=== PATIENT | male | born 1940 | race Caucasian/White ===

== ENCOUNTER 2019-09-28 17:19 | Inpatient (IN) | payer MEDICARE, MEDICAID ==
[~2019-09-28] VITALS: Ht 172.7 cm; Wt 77.1 kg
[2019-09-28 17:28] VITALS: BP 140/90
--- NOTE | 2019-09-28 17:28 | Emergency Room Report ---
History of Present Illness General Chief Complaint: AMS Source: Patient, Medical Record, EMS Present Illness HPI Patient is a 79-year-old male past medical history of psychiatric disorder, COPD , dementia who was brought in by EMS from his extended care facility for acute psychosis. Per EMS patient started acting agitated and was trying to climb tripp out of the facility. Patient is currently alert and oriented x3. He does not recall any such event. He states he has been watching reruns on TV all day. He denies any headache or head trauma. He denies any chest pain or shortness of breath. He denies any nausea or vomiting. Patient actually declines having any acute complaints. Upon patient arrival I spoke with the patient psychiatrist Dr. lozano who would like basic labs and would like the patient admitted to his primary care physician for further treatment and evaluation. She states that she will adjust his psychiatric medications. Allergies: Coded Allergies: No Known Allergies (Unverified , 09/28/19) Patient History Reviewed Nursing Documentation: PMH: Agreed; PSxH: Agreed Review of Systems All Other Systems: negative except mentioned in HPI Physical Exam Sp02 EP Interpretation: reviewed, normal General Appearance: no apparent distress, alert, GCS 15, non-toxic Head: normocephalic, atraumatic Eyes: bilateral eye normal inspection, bilateral eye PERRL ENT: hearing grossly normal, normal pharynx, no angioedema, normal voice Neck: full range of motion, supple/symm/no masses Respiratory: chest non-tender, lungs clear, normal breath sounds, speaking full sentences Cardiovascular #1: regular rate, rhythm, no edema Gastrointestinal: normal bowel sounds, non tender, soft, non-distended, no guarding, no rebound Rectal: deferred Genitourinary: no CVA tenderness Musculoskeletal: no calf tenderness Neurologic: hospital social worker III-XII nml as tested Psychiatric: no suicidal/homicidal ideation Skin: no rash Lymphatic: no adenopathy Medical Decision Making Diagnostic Impression: Primary Impression: Psychosis Additional Impressions: Dehydration Acute renal failure ER Course Patient became agitated and non-compliant with medical treatment and care. Patient given 2mg IM ativan. He is now resting comfortably in his gurney. Patient's labs demonstrate dehydration with mild TRAY. 1 L of IV fluids has been given. Patient be admitted for further treatment and evaluation UA pending at time of admission. Laboratory Tests Test 09/28/19 18:28 White Blood Count 5.7 K/UL (4.8-10.8) Red Blood Count 4.37 M/UL (4.70-6.10) L Hemoglobin 14.0 G/DL (14.2-18.0) L Hematocrit 41.8 % (42.0-52.0) L Mean Corpuscular Volume 96 FL (80-99) Mean Corpuscular Hemoglobin 31.9 PG (27.0-31.0) H Mean Corpuscular Hemoglobin Concent 33.4 G/DL (32.0-36.0) Red Cell Distribution Width 12.2 % (11.6-14.8) Platelet Count 107 K/UL (150-450) L Mean Platelet Volume 11.2 FL (6.5-10.1) H Neutrophils (%) (Auto) 53.0 % (45.0-75.0) Lymphocytes (%) (Auto) 37.2 % (20.0-45.0) Monocytes (%) (Auto) 7.7 % (1.0-10.0) Eosinophils (%) (Auto) 1.1 % (0.0-3.0) Basophils (%) (Auto) 1.0 % (0.0-2.0) Sodium Level 141 MMOL/L (136-145) Potassium Level 3.9 MMOL/L (3.5-5.1) Chloride Level 103 MMOL/L (98-107) Carbon Dioxide Level 25 MMOL/L (21-32) Anion Gap 13 mmol/L (5-15) Blood Urea Nitrogen 30 mg/dL (7-18) H Creatinine 1.3 MG/DL (0.55-1.30) Estimated Glomerular Filtration Rate 53.4 mL/min (>60) Glucose Level 103 MG/DL (74-106) Calcium Level 8.7 MG/DL (8.5-10.1) Total Bilirubin 0.3 MG/DL (0.2-1.0) Aspartate Amino Transferase (AST) 17 U/L (15-37) Alanine Aminotransferase (ALT) 24 U/L (12-78) Alkaline Phosphatase 70 U/L (46-116) Total Protein 7.0 G/DL (6.4-8.2) Albumin 3.4 G/DL (3.4-5.0) Globulin 3.6 g/dL Albumin/Globulin Ratio 0.9 (1.0-2.7) L Salicylates Level 0.8 ug/mL (2.8-20) L Acetaminophen Level < 2 MCG/ML (10-30) L Serum Alcohol < 3 mg/dL Disposition: PLACE IN OBSERVATION Condition: Critical Physician Consult: Dr. Collado at 1915 will admit to [facility] Additional Instructions: Please note that this report is being documented using TickPick technology. This can lead to erroneous entry secondary to incorrect interpretation by the dictating instrument. Latosha Montanez M.D. Sep 28, 2019 17:28
[2019-09-28] MEDS ORDERED: LORazepam Inj 2mg/ml 1ml ONE (17:43)
[2019-09-28] MEDS ORDERED: LORazepam Inj 2mg/ml 1ml IM ONE (17:45)
[2019-09-28] MEDS ORDERED: CRANBERRY450 M4 PO (17:50)
[2019-09-28] MEDS ORDERED: COLACE100 MG ORAL (17:50)
[2019-09-28] MEDS ORDERED: ACETAMINOPHEN500 M5 ORAL (17:54)
[2019-09-28] MEDS ORDERED: DULCOLAX10 MG RC (17:54)
[2019-09-28] MEDS ORDERED: FLEET ENEMA133 ML RECTAL (17:54)
[2019-09-28] MEDS ORDERED: MULTIVITAMINS1 EA13 ORAL (17:54)
[2019-09-28] MEDS ORDERED: OSCAL D500 MG ORAL (17:54)
[2019-09-28] MEDS ORDERED: MILK OF MA400 MG/51 ORAL (17:54)
[2019-09-28] MEDS ORDERED: DEPAKOTE ER500 MG ORAL (17:54)
[2019-09-28 18:37] LABS: EOSINOPHILS % (AUTO) 1.1 % (0.0-3.0); HEMATOCRIT 41.8 % (42.0-52.0); LYMPHOCYTES % (AUTO) 37.2 % (20.0-45.0); MEAN CORPUSCULAR VOLUME 96 FL (80-99); MONOCYTES % (AUTO) 7.7 % (1.0-10.0); PLATELET COUNT 107 K/UL (150-450); RED BLOOD COUNT 4.37 M/UL (4.70-6.10); RED CELL DISTRIBUTION WIDTH 12.2 % (11.6-14.8); WHITE BLOOD COUNT 5.7 K/UL (4.8-10.8)
[2019-09-28 18:58] LABS: ANION GAP 13 mmol/L (5-15); BLOOD UREA NITROGEN 30 mg/dL (7-18); CALCIUM 8.7 MG/DL (8.5-10.1); CARBON DIOXIDE 25 MMOL/L (21-32); CHLORIDE 103 MMOL/L (98-107); CREATININE 1.3 MG/DL (0.55-1.30); POTASSIUM 3.9 MMOL/L (3.5-5.1); SODIUM 141 MMOL/L (136-145)
[2019-09-28 19:02] LABS: ALANINE AMINOTRANSFERASE 24 U/L (12-78); ALBUMIN 3.4 G/DL (3.4-5.0); ALBUMIN/GLOBULIN RATIO 0.9 (1.0-2.7); ALKALINE PHOSPHATASE 70 U/L (46-116); ASPARTATE AMINO TRANSFERASE 17 U/L (15-37); BILIRUBIN,TOTAL 0.3 MG/DL (0.2-1.0)
[2019-09-28] MEDS ORDERED: LORazepam Inj 2mg/ml 1ml IV ONE (20:30)
[2019-09-28] MEDS ORDERED: Milk of Magnesia 30ml Ud ORAL PRN (22:00)
[2019-09-28] MEDS ORDERED: Acetaminophen 500mg (ES) tab ORAL PRN (22:00)
[2019-09-28] MEDS ORDERED: Fleet's Enema 133ml RECTAL PRN (22:00)
--- NOTE | 2019-09-28 23:39 | Initial Psychiatric Evaluation ---
Psychiatry Consultation Psychiatry Consultation Chief Complaint: Altered Mental Status Allergies: Coded Allergies: No Known Allergies (Unverified , 09/28/19) Medication History Scheduled Acetaminophen (Acetaminophen), 500 MG ORAL Q4H, (Reported) Calcium Carbonate (Oyster Shell Calcium-Vit D Tab), 500 MG ORAL TID, (Reported) Cranberry Fruit Concentrate (Cranberry), 900 MG PO DAILY, (Reported) Divalproex Sodium* (Depakote Er*), 500 MG ORAL EVERY 12 HOURS, (Reported) Docusate Sodium* (Colace*), 100 MG ORAL DAILY, (Reported) Multivitamin with Minerals (Multivitamins with Minerals), 1 TAB ORAL DAILY, ( Reported) Scheduled PRN Bisacodyl (Dulcolax), 10 MG RC NEEDED PRN for Constipation, (Reported) Magnesium Hydroxide* (Milk Of Magnesia*), 30 ML ORAL DAILY PRN for Constipation, (Reported) Na Phos,M-B/Na Phos,Di-Ba* (Fleet Enema*), 133 ML RECTAL DAILY PRN for Constipation, (Reported) Objective Data Height (Feet): 5 Height (Inches): 8.00 Weight (Pounds): 170 Appearance: no abnormalities noted Behavior Mannerisms: good eye contact Affect: blunted Mood: angry, anxious Thought Process: tangential Suicidal Ideation: not present Assessment/Plan Diagnosis Charlotte I: 1) Psychotic disorder ICD Codes: F29 - Unspecified psychosis not due to a substance or known physiological condition SNOMED: 13337690 Assessment/Plan: depakote 1250mg po qhs risperdal 2mg po qhs Bradley Yadav MD Sep 28, 2019 23:39
[2019-09-29] VITALS: BP 100/61
[2019-09-29 03:16] LABS: APPEARANCE,URINE CLEAR; BILIRUBIN, URINE NEGATIVE (NEGATIVE); COLOR,URINE PALE YELLOW; GLUCOSE, URINE (UA) NEGATIVE (NEGATIVE); KETONES,URINE NEGATIVE (NEGATIVE); LEUKOCYTE ESTERASE ,URINE NEGATIVE (NEGATIVE); NITRITE,URINE NEGATIVE (NEGATIVE); PH,URINE 6 (4.5-8.0); PROTEIN,URINE NEGATIVE (NEGATIVE); UROBILINOGEN,URINE NORMAL MG/DL (0.0-1.0)
[2019-09-29 04:00] VITALS: BP 113/65
[2019-09-29 06:19] LABS: HEMATOCRIT 43.8 % (42.0-52.0); HEMOGLOBIN 14.3 G/DL (14.2-18.0); MEAN CORPUSCULAR VOLUME 96 FL (80-99); PLATELET COUNT 98 K/UL (150-450); RED BLOOD COUNT 4.54 M/UL (4.70-6.10); RED CELL DISTRIBUTION WIDTH 11.3 % (11.6-14.8); WHITE BLOOD COUNT 5.7 K/UL (4.8-10.8)
[2019-09-29 06:31] LABS: ALANINE AMINOTRANSFERASE 22 U/L (12-78); ALBUMIN 3.3 G/DL (3.4-5.0); ALBUMIN/GLOBULIN RATIO 0.9 (1.0-2.7); ALKALINE PHOSPHATASE 68 U/L (46-116); ANION GAP 8 mmol/L (5-15); ASPARTATE AMINO TRANSFERASE 20 U/L (15-37); BILIRUBIN,TOTAL 0.6 MG/DL (0.2-1.0); BLOOD UREA NITROGEN 20 mg/dL (7-18); CALCIUM 8.4 MG/DL (8.5-10.1); CARBON DIOXIDE 29 MMOL/L (21-32); CHLORIDE 104 MMOL/L (98-107); POTASSIUM 3.8 MMOL/L (3.5-5.1); SODIUM 141 MMOL/L (136-145)
[2019-09-29 08:00] VITALS: BP 108/59
[2019-09-29] MEDS: Depakote 500mg tab ORAL SCH ×2 (08:25→17:17)
[2019-09-29] MEDS: Multivitamin w/Minerals tab ORAL SCH (08:25)
--- NOTE | 2019-09-29 10:17 | Consultation ---
History of Present Illness General Chief Complaint: Altered Mental Status Present Illness Allergies: Coded Allergies: No Known Allergies (Unverified , 09/28/19) Medication History Scheduled Acetaminophen (Acetaminophen), 500 MG ORAL Q4H, (Reported) Calcium Carbonate (Oyster Shell Calcium-Vit D Tab), 500 MG ORAL TID, (Reported) Cranberry Fruit Concentrate (Cranberry), 900 MG PO DAILY, (Reported) Divalproex Sodium* (Depakote Er*), 500 MG ORAL EVERY 12 HOURS, (Reported) Docusate Sodium* (Colace*), 100 MG ORAL DAILY, (Reported) Multivitamin with Minerals (Multivitamins with Minerals), 1 TAB ORAL DAILY, ( Reported) Scheduled PRN Bisacodyl (Dulcolax), 10 MG RC NEEDED PRN for Constipation, (Reported) Magnesium Hydroxide* (Milk Of Magnesia*), 30 ML ORAL DAILY PRN for Constipation, (Reported) Na Phos,M-B/Na Phos,Di-Ba* (Fleet Enema*), 133 ML RECTAL DAILY PRN for Constipation, (Reported) Patient History Healthcare decision maker Resuscitation status Advanced Directive on File Physical Exam Last 24 Hour Vital Signs Date Time Temp Pulse Resp B/P (MAP) Pulse Ox O2 Delivery O2 Flow Rate FiO2 09/29/19 08:42 Room Air 09/29/19 08:00 97.2 59 18 108/59 (75) 95 09/29/19 04:00 97.6 56 18 113/65 (81) 95 09/29/19 00:00 97.4 58 18 100/61 (74) 97 09/28/19 21:16 Room Air 09/28/19 20:30 97.0 70 18 137/89 99 Room Air 09/28/19 17:38 76 14 Room Air 09/28/19 17:28 97.0 76 14 140/90 (107) 99 Room Air 09/28/19 17:28 97.0 76 14 140/90 99 Room Air Intake and Output 09/28/19 09/29/19 19:00 07:00 Intake Total 0 ml 1110 ml Output Total 550 ml Balance 0 ml 560 ml Intake Oral 0 ml 110 ml IV Total 1000 ml Output Urine Total 550 ml Laboratory Tests Test 09/28/19 18:28 09/29/19 02:50 09/29/19 05:10 White Blood Count 5.7 K/UL (4.8-10.8) 5.7 K/UL (4.8-10.8) Red Blood Count 4.37 M/UL (4.70-6.10) L 4.54 M/UL (4.70-6.10) L Hemoglobin 14.0 G/DL (14.2-18.0) L 14.3 G/DL (14.2-18.0) Hematocrit 41.8 % (42.0-52.0) L 43.8 % (42.0-52.0) Mean Corpuscular Volume 96 FL (80-99) 96 FL (80-99) Mean Corpuscular Hemoglobin 31.9 PG (27.0-31.0) H 31.4 PG (27.0-31.0) H Mean Corpuscular Hemoglobin Concent 33.4 G/DL (32.0-36.0) 32.6 G/DL (32.0-36.0) Red Cell Distribution Width 12.2 % (11.6-14.8) 11.3 % (11.6-14.8) L Platelet Count 107 K/UL (150-450) L 98 K/UL (150-450) L Mean Platelet Volume 11.2 FL (6.5-10.1) H 13.4 FL (6.5-10.1) H Neutrophils (%) (Auto) 53.0 % (45.0-75.0) % (45.0-75.0) Lymphocytes (%) (Auto) 37.2 % (20.0-45.0) % (20.0-45.0) Monocytes (%) (Auto) 7.7 % (1.0-10.0) % (1.0-10.0) Eosinophils (%) (Auto) 1.1 % (0.0-3.0) % (0.0-3.0) Basophils (%) (Auto) 1.0 % (0.0-2.0) % (0.0-2.0) Sodium Level 141 MMOL/L (136-145) 141 MMOL/L (136-145) Potassium Level 3.9 MMOL/L (3.5-5.1) 3.8 MMOL/L (3.5-5.1) Chloride Level 103 MMOL/L (98-107) 104 MMOL/L (98-107) Carbon Dioxide Level 25 MMOL/L (21-32) 29 MMOL/L (21-32) Anion Gap 13 mmol/L (5-15) 8 mmol/L (5-15) Blood Urea Nitrogen 30 mg/dL (7-18) H 20 mg/dL (7-18) H Creatinine 1.3 MG/DL (0.55-1.30) 1.0 MG/DL (0.55-1.30) Estimat Glomerular Filtration Rate 53.4 mL/min (>60) > 60 mL/min (>60) Glucose Level 103 MG/DL (74-106) 110 MG/DL (74-106) H Calcium Level 8.7 MG/DL (8.5-10.1) 8.4 MG/DL (8.5-10.1) L Total Bilirubin 0.3 MG/DL (0.2-1.0) 0.6 MG/DL (0.2-1.0) Aspartate Amino Transf (AST/SGOT) 17 U/L (15-37) 20 U/L (15-37) Alanine Aminotransferase (ALT/SGPT) 24 U/L (12-78) 22 U/L (12-78) Alkaline Phosphatase 70 U/L (46-116) 68 U/L (46-116) Total Protein 7.0 G/DL (6.4-8.2) 6.9 G/DL (6.4-8.2) Albumin 3.4 G/DL (3.4-5.0) 3.3 G/DL (3.4-5.0) L Globulin 3.6 g/dL 3.6 g/dL Albumin/Globulin Ratio 0.9 (1.0-2.7) L 0.9 (1.0-2.7) L Salicylates Level 0.8 ug/mL (2.8-20) L Acetaminophen Level < 2 MCG/ML (10-30) L Serum Alcohol < 3 mg/dL Urine Color Pale yellow Urine Appearance Clear Urine pH 6 (4.5-8.0) Urine Specific Hankinson 1.010 (1.005-1.035) Urine Protein Negative (NEGATIVE) Urine Glucose (UA) Negative (NEGATIVE) Urine Ketones Negative (NEGATIVE) Urine Blood 3+ (NEGATIVE) H Urine Nitrite Negative (NEGATIVE) Urine Bilirubin Negative (NEGATIVE) Urine Urobilinogen Normal MG/DL (0.0-1.0) Urine Leukocyte Esterase Negative (NEGATIVE) Urine RBC 2-4 /HPF (0 - 0) H Urine WBC 0 /HPF (0 - 0) Urine Squamous Epithelial Cells Few /LPF (NONE/OCC) Urine Bacteria None /HPF (NONE) Urine Opiates Screen Negative (NEGATIVE) Urine Barbiturates Screen Negative (NEGATIVE) Phencyclidine (PCP) Screen Negative (NEGATIVE) Urine Amphetamines Screen Negative (NEGATIVE) Urine Benzodiazepines Screen Negative (NEGATIVE) Urine Cocaine Screen Negative (NEGATIVE) Urine Marijuana (THC) Screen Negative (NEGATIVE) Microbiology Date/Time Source Procedure Growth Status 09/28/19 18:20 Rectum Received Height (Feet): 5 Height (Inches): 8.00 Weight (Pounds): 170 Medications Current Medications Medications (Trade) Dose Ordered Sig/Keenan Route PRN Reason Start Time Stop Time Status Last Admin Dose Admin Acetaminophen (Tylenol) 325 mg Q6H PRN ORAL Mild Pain (Pain Scale 1-4) 09/28/19 22:45 10/28/19 22:44 Acetaminophen (Tylenol) 1,000 mg Q6HR PRN ORAL PAIN 5-7 09/28/19 22:00 10/28/19 21:59 Bisacodyl (Dulcolax) 10 mg DAILYPRN PRN RECTAL Constipation 09/28/19 22:00 12/27/19 21:59 Divalproex Sodium (Depakote) 500 mg BID ORAL 09/29/19 09:00 10/29/19 08:59 09/29/19 08:25 Magnesium Hydroxide (Mom) 30 ml QHS PRN ORAL Constipation 09/28/19 22:00 10/28/19 21:59 Multivitamins Therapeutic (Therapeutic Multivitamin) 1 ea DAILY ORAL 09/29/19 09:00 10/29/19 08:59 09/29/19 08:25 Sodium Phosphate (Fleet's Sodium Phosl Enema) 133 ml Q24HRS PRN RECTAL Constipation 09/28/19 22:00 10/28/19 21:59 Assessment/Plan Assessment/Plan: Hematology Consultation REQ MD: Joana Wilson RFC: Thrombocytopenia eval DOS: 09/29/2019 HPI Patient is a 79-year-old male past medical history of psychiatric disorder, COPD , dementia who was brought in by EMS from his extended care facility for acute psychosis. Per EMS patient started acting agitated and was trying to climb tripp out of the facility. Patient is currently alert and oriented x3. He does not recall any such event. He states he has been watching reruns on TV all day. He denies any headache or head trauma. He denies any chest pain or shortness of breath. He denies any nausea or vomiting. Patient actually declines having any acute complaints. Upon patient arrival I spoke with the patient psychiatrist Dr. lozano who would like basic labs and would like the patient admitted to his primary care physician for further treatment and evaluation. She states that she will adjust his psychiatric medications. Noted to have a plt count of approx 100k, heme was consulted for eval and rx Allergies: No Known Allergies (Unverified , 09/28/19) Patient History Reviewed Nursing Documentation: PMH: Agreed; PSxH: Agreed ROS Constitutional: No fever, no chills, no night sweats, no fatigue Skin: No rashes, lumps, itchiness, dryness HEENT: No GAGE, ear ache, visual changes, double vision, nosebleeds Breasts: No lumps, pain, discharge Pulmonary: No cough, sputum, shortness of breath, coughing up blood Cardiovascular: No chest pain, tightness, palpitations, syncope, PND GI: No nausea, vomiting, diarrhea, melena, hematochezia, change in appetite, : No dysuria, frequency, urgency, urinary incontinence, foamy urine Musculoskeletal: No joint swelling or muscle pain, trauma, back pain Neurologic: No dizziness, fainting, seizures, changes in smell or taste Psychiatric: No nervousness, stress, or depression, anxiety, hallucinations Endocrine: No weight change, heat or cold intolerance, tremor, insomnia Physical Exam: Vitals: reviewed General: NAD HEENT: nc, at Neck: supple Chest: clear breath sounds bilaterally Cardiovascular: RRR, no s3, s4 Abdomen: soft, nontender, nd Extremities: no cce, normal range of motion Neuro: alert and oriented Labs noted Imaging reviewed Assessment and Recs # Thrombocytopenia - potential causes multifactorial, evaluate liver and viral etiologies to begin, also could be related to underlying medications patient has received. --> Hep panel and HIV ordered --> US abd to evaluate for cirrhosis and hsm ordered --> Peripheral smear ordered to evaluate for blasts /schistocytes --> is wnl --> abx and other meds have been reviewed --> ok for ppx if plt >50k w/ either heparin or lovenox --> Transfuse if Plt < 20k and fever, or if Plt < 10k without fever --> psych meds have been noted -> plt trend 107-->98 # Dehydration --> goal of euvoemia --> ivfs as per renal # Psychosis -> psych meds noted # Acute renal failure --> cr trend as needed # Dvt ppx scds The timing of this note does not necessarily reflect the time of the patient was seen. Greatly appreciate consultation. Kin Porter MD Sep 29, 2019 10:17
[2019-09-29 11:24] VITALS: BP 107/66
--- NOTE | 2019-09-29 11:33 | Diagnostic Imaging Report ---
Indication: Chest pain Technique: One view of the chest Comparison: none Findings: Lungs and pleural spaces are clear. Heart size is normal. Impression: No acute process
[2019-09-29] MEDS ORDERED: LORazepam 1mg tab ORAL PRN (14:45)
[2019-09-29 16:00] VITALS: BP 127/72
--- NOTE | 2019-09-29 21:30 | History and Physical Report ---
DATE OF ADMISSION: 09/28/2019 HISTORY OF PRESENT ILLNESS: Patient comes with altered mental status, confused, and agitated. Patient is a psychiatric patient. Patient also has some azotemia and dehydration as well. Patient denies nausea, vomiting, or diarrhea. Denies fever or chills. Denies shortness of breath. Denies cough. Admitted for dehydration, azotemia, and altered mental status. PAST MEDICAL HISTORY: Psychosis, constipation, mood disorder. MEDICATIONS: Depakote, calcium, cranberry, Bisacodyl, magnesium, multivitamin. PAST SURGICAL HISTORY: None. ALLERGIES: None. FAMILY HISTORY: Noncontributory. SOCIAL HISTORY: Does have history of smoking. Denies history of alcohol or illicit drugs. Comes from a facility. REVIEW OF SYSTEMS: HEENT: Denies headaches. RESPIRATORY: Denies shortness of breath or cough. CARDIOVASCULAR: Denies chest pain. GASTROINTESTINAL: Denies nausea, vomiting, or diarrhea. EXTREMITIES: Denies pain. CENTRAL NERVOUS SYSTEM: Denies change in speech pattern. Feels weak. PHYSICAL EXAMINATION: VITAL SIGNS: Temperature 97.4, pulse is 56, blood pressure is 113/65. HEENT: PERRLA. NECK: Supple. No lymphadenopathy. CHEST: Clear to auscultation. CARDIOVASCULAR: Bradycardic. No murmur. GASTROINTESTINAL: Soft, nontender, nondistended. No organomegaly. EXTREMITIES: No edema. Moves all four extremities. Sensory intact to light touch. Reflexes on both sides. LABORATORY DATA: WBC of 5.7, hemoglobin 14, platelets of 107. Sodium 141, potassium 3.9, BUN of 30, creatinine 1.3. ASSESSMENT AND PLAN: Azotemia, dehydration, altered mental status. Dr. Yadav has been consulted. We will give fluids as needed. Joana Dubois M.D. DR: KIN JOB#: [id number] CC:
--- NOTE | 2019-09-29 23:52 | Initial Psychiatric Evaluation ---
Psychiatry Consultation Psychiatry Consultation Chief Complaint: Altered Mental Status History of Present Illness: 79-year-old male past medical history of schizophrenia, COPD, dementia who was brought in by EMS from his extended care facility for acute psychosis. the was delusional and agitated and was trying to climb tripp out of the facility. the pt is pacing around the unit and is a poor historian. poor impulse control Allergies: Coded Allergies: No Known Allergies (Unverified , 09/28/19) Medical History: renal failure psychotic do Medication History Scheduled Acetaminophen (Acetaminophen), 500 MG ORAL Q4H, (Reported) Calcium Carbonate (Oyster Shell Calcium-Vit D Tab), 500 MG ORAL TID, (Reported) Cranberry Fruit Concentrate (Cranberry), 900 MG PO DAILY, (Reported) Divalproex Sodium* (Depakote Er*), 500 MG ORAL EVERY 12 HOURS, (Reported) Docusate Sodium* (Colace*), 100 MG ORAL DAILY, (Reported) Multivitamin with Minerals (Multivitamins with Minerals), 1 TAB ORAL DAILY, ( Reported) Scheduled PRN Bisacodyl (Dulcolax), 10 MG RC NEEDED PRN for Constipation, (Reported) Magnesium Hydroxide* (Milk Of Magnesia*), 30 ML ORAL DAILY PRN for Constipation, (Reported) Na Phos,M-B/Na Phos,Di-Ba* (Fleet Enema*), 133 ML RECTAL DAILY PRN for Constipation, (Reported) Patient History Limited by: medical condition History Provided By: Patient, Medical Record Objective Data Height (Feet): 5 Height (Inches): 8.00 Weight (Pounds): 170 Appearance: no abnormalities noted Behavior Mannerisms: poor eye contact Affect: blunted Speech: clear Thought Process: tangential Perceptual Disturbances: hallucinations Suicidal Ideation: not present Assessment/Plan Problem List: (1) Psychotic disorder ICD Codes: F29 - Unspecified psychosis not due to a substance or known physiological condition SNOMED: [id number] Assessment/Plan: depakote 1250mg po qhs risperdal 2mg po qhs Bradley Yadav MD Sep 29, 2019 23:52
[2019-09-30] VITALS: BP 104/55
[2019-09-30 04:00] VITALS: BP 95/54
--- NOTE | 2019-09-30 06:27 | Hematology/Onc Progress Note ---
Assessment/Plan Assessment/Plan Assessment and Recs # Thrombocytopenia - potential causes multifactorial, evaluate liver and viral etiologies to begin, also could be related to underlying medications patient has received. --> Hep panel and HIV ordered --> US abd to evaluate for cirrhosis and hsm ordered --> Peripheral smear ordered to evaluate for blasts /schistocytes --> is wnl --> abx and other meds have been reviewed --> ok for ppx if plt >50k w/ either heparin or lovenox --> Transfuse if Plt < 20k and fever, or if Plt < 10k without fever --> psych meds have been noted -> plt trend 107-->98 # Dehydration --> goal of euvoemia --> ivfs as per renal # Psychosis -> psych meds noted # Acute renal failure --> cr trend as needed # Dvt ppx scds The timing of this note does not necessarily reflect the time of the patient was seen. Greatly appreciate consultation. Subjective Constitutional: Denies: no symptoms, chills, fever, malaise, weakness, other HEENT: Denies: no symptoms, eye pain, blurred vision, tearing, double vision, ear pain, ear discharge, nose pain, nose congestion, throat pain, throat swelling, mouth pain, mouth swelling, other Cardiovascular: Denies: no symptoms, chest pain, edema, irregular heart rate, lightheadedness, palpitations, syncope, other Gastrointestinal/Abdominal: Denies: no symptoms, abdomen distended, abdominal pain, black stools, tarry stools, blood in stool, constipated, diarrhea, difficulty swallowing, nausea, poor appetite, poor fluid intake, rectal bleeding , vomiting, other Genitourinary: Denies: no symptoms, burning, discharge, frequency, flank pain, hematuria, incontinence, pain, urgency, other Neurologic/Psychiatric: Denies: no symptoms, anxiety, depressed, emotional problems, headache, numbness, paresthesia, pre-existing deficit, seizure, tingling, tremors, weakness, other Endocrine: Denies: no symptoms, excessive sweating, flushing, intolerance to cold, intolerance to heat, increased hunger, increased thirst, increased urine, unexplained weight gain, unexplained weight loss, other Hematologic/Lymphatic: Denies: no symptoms, anemia, easy bleeding, easy bruising, adenopathy, other Allergies: Coded Allergies: No Known Allergies (Unverified , 09/28/19) Subjective 09/29 no major changes, no bleeding, no chills seen Objective Objective Current Medications Medications (Trade) Dose Ordered Sig/Keenan Route PRN Reason Start Time Stop Time Status Last Admin Dose Admin Acetaminophen (Tylenol) 325 mg Q6H PRN ORAL Mild Pain (Pain Scale 1-4) 09/28/19 22:45 10/28/19 22:44 Acetaminophen (Tylenol) 1,000 mg Q6HR PRN ORAL PAIN 5-7 09/28/19 22:00 10/28/19 21:59 Bisacodyl (Dulcolax) 10 mg DAILYPRN PRN RECTAL Constipation 09/28/19 22:00 12/27/19 21:59 Divalproex Sodium (Depakote) 250 mg BEDTIME ORAL 09/30/19 21:00 10/30/19 20:59 Divalproex Sodium (Depakote) 1,000 mg BEDTIME ORAL 09/30/19 21:00 10/30/19 20:59 Lorazepam (Ativan) 1 mg Q6H PRN ORAL For Anxiety 09/29/19 14:45 10/06/19 14:44 09/29/19 14:52 Magnesium Hydroxide (Mom) 30 ml QHS PRN ORAL Constipation 09/28/19 22:00 10/28/19 21:59 Multivitamins Therapeutic (Therapeutic Multivitamin) 1 ea DAILY ORAL 09/29/19 09:00 10/29/19 08:59 09/29/19 08:25 Risperidone (RisperDAL) 2 mg BEDTIME ORAL 09/30/19 21:00 11/14/19 20:59 Sodium Phosphate (Fleet's Sodium Phosl Enema) 133 ml Q24HRS PRN RECTAL Constipation 09/28/19 22:00 10/28/19 21:59 Last 24 Hour Vital Signs Date Time Temp Pulse Resp B/P (MAP) Pulse Ox O2 Delivery O2 Flow Rate FiO2 09/30/19 04:00 63 18 95/54 (68) 97 09/30/19 00:00 54 16 104/55 (71) 97 09/29/19 21:00 Room Air 09/29/19 16:00 97.7 59 16 127/72 (90) 97 7/23/20 11:24 97.6 58 18 107/66 (80) 95 09/29/19 08:42 Room Air 09/29/19 08:00 97.2 59 18 108/59 (75) 95 09/29/19 04:00 97.6 56 18 113/65 (81) 95 09/29/19 00:00 97.4 58 18 100/61 (74) 97 09/28/19 21:16 Room Air 09/28/19 20:30 97.0 70 18 137/89 99 Room Air 09/28/19 17:38 76 14 Room Air 09/28/19 17:28 97.0 76 14 140/90 (107) 99 Room Air 09/28/19 17:28 97.0 76 14 140/90 99 Room Air Intake and Output 09/29/19 09/30/19 18:59 06:59 Intake Total 200 ml Output Total 1000 ml Balance -1000 ml 200 ml Intake Oral 200 ml Output Urine Total 1000 ml # Voids 4 Labs Test 09/28/19 18:28 09/29/19 02:50 09/29/19 05:10 White Blood Count 5.7 K/UL (4.8-10.8) 5.7 K/UL (4.8-10.8) Red Blood Count 4.37 M/UL (4.70-6.10) 4.54 M/UL (4.70-6.10) Hemoglobin 14.0 G/DL (14.2-18.0) 14.3 G/DL (14.2-18.0) Hematocrit 41.8 % (42.0-52.0) 43.8 % (42.0-52.0) Mean Corpuscular Volume 96 FL (80-99) 96 FL (80-99) Mean Corpuscular Hemoglobin 31.9 PG (27.0-31.0) 31.4 PG (27.0-31.0) Mean Corpuscular Hemoglobin Concent 33.4 G/DL (32.0-36.0) 32.6 G/DL (32.0-36.0) Red Cell Distribution Width 12.2 % (11.6-14.8) 11.3 % (11.6-14.8) Platelet Count 107 K/UL (150-450) 98 K/UL (150-450) Mean Platelet Volume 11.2 FL (6.5-10.1) 13.4 FL (6.5-10.1) Neutrophils (%) (Auto) 53.0 % (45.0-75.0) % (45.0-75.0) Lymphocytes (%) (Auto) 37.2 % (20.0-45.0) % (20.0-45.0) Monocytes (%) (Auto) 7.7 % (1.0-10.0) % (1.0-10.0) Eosinophils (%) (Auto) 1.1 % (0.0-3.0) % (0.0-3.0) Basophils (%) (Auto) 1.0 % (0.0-2.0) % (0.0-2.0) Sodium Level 141 MMOL/L (136-145) 141 MMOL/L (136-145) Potassium Level 3.9 MMOL/L (3.5-5.1) 3.8 MMOL/L (3.5-5.1) Chloride Level 103 MMOL/L (98-107) 104 MMOL/L (98-107) Carbon Dioxide Level 25 MMOL/L (21-32) 29 MMOL/L (21-32) Anion Gap 13 mmol/L (5-15) 8 mmol/L (5-15) Blood Urea Nitrogen 30 mg/dL (7-18) 20 mg/dL (7-18) Creatinine 1.3 MG/DL (0.55-1.30) 1.0 MG/DL (0.55-1.30) Estimat Glomerular Filtration Rate 53.4 mL/min (>60) > 60 mL/min (>60) Glucose Level 103 MG/DL (74-106) 110 MG/DL (74-106) Calcium Level 8.7 MG/DL (8.5-10.1) 8.4 MG/DL (8.5-10.1) Total Bilirubin 0.3 MG/DL (0.2-1.0) 0.6 MG/DL (0.2-1.0) Aspartate Amino Transf (AST/SGOT) 17 U/L (15-37) 20 U/L (15-37) Alanine Aminotransferase (ALT/SGPT) 24 U/L (12-78) 22 U/L (12-78) Alkaline Phosphatase 70 U/L (46-116) 68 U/L (46-116) Total Protein 7.0 G/DL (6.4-8.2) 6.9 G/DL (6.4-8.2) Albumin 3.4 G/DL (3.4-5.0) 3.3 G/DL (3.4-5.0) Globulin 3.6 g/dL 3.6 g/dL Albumin/Globulin Ratio 0.9 (1.0-2.7) 0.9 (1.0-2.7) Salicylates Level 0.8 ug/mL (2.8-20) Acetaminophen Level < 2 MCG/ML (10-30) Serum Alcohol < 3 mg/dL Urine Color Pale yellow Urine Appearance Clear Urine pH 6 (4.5-8.0) Urine Specific [place] 1.010 (1.005-1.035) Urine Protein Negative (NEGATIVE) Urine Glucose (UA) Negative (NEGATIVE) Urine Ketones Negative (NEGATIVE) Urine Blood 3+ (NEGATIVE) Urine Nitrite Negative (NEGATIVE) Urine Bilirubin Negative (NEGATIVE) Urine Urobilinogen Normal MG/DL (0.0-1.0) Urine Leukocyte Esterase Negative (NEGATIVE) Urine RBC 2-4 /HPF (0 - 0) Urine WBC 0 /HPF (0 - 0) Urine Squamous Epithelial Cells Few /LPF (NONE/OCC) Urine Bacteria None /HPF (NONE) Urine Opiates Screen Negative (NEGATIVE) Urine Barbiturates Screen Negative (NEGATIVE) Phencyclidine (PCP) Screen Negative (NEGATIVE) Urine Amphetamines Screen Negative (NEGATIVE) Urine Benzodiazepines Screen Negative (NEGATIVE) Urine Cocaine Screen Negative (NEGATIVE) Urine Marijuana (THC) Screen Negative (NEGATIVE) Height (Feet): 5 Height (Inches): 8.00 Weight (Pounds): 170 Objective Vitals: reviewed General: NAD HEENT: nc, at Neck: supple Chest: clear breath sounds bilaterally Cardiovascular: RRR, no s3, s4 Abdomen: soft, nontender, nd Extremities: no cce, normal range of motion Neuro: alert and oriented Kin Porter MD Sep 30, 2019 06:27
[2019-09-30 08:00] VITALS: BP 101/61
[2019-09-30] MEDS: Multivitamin w/Minerals tab ORAL SCH (08:22)
[2019-09-30 12:00] VITALS: BP 106/73
[2019-09-30 16:00] VITALS: BP 106/67
[2019-09-30] MEDS ORDERED: Depakote 500mg tab ORAL SCH (21:00)
--- NOTE | 2019-09-30 23:34 | Psych Consult Progress Note ---
Psychiatry Progress Note Psychiatry Progress Note Neurological/Psychiatric: Reports: anxiety, depressed Allergies: Coded Allergies: No Known Allergies (Unverified , 09/28/19) Objective Data Height (Feet): 5 Height (Inches): 8.00 Weight (Pounds): 170 General Appearance: no apparent distress, alert, confused Additional Comments: Behavior Mannerisms: poor eye contact Affect: blunted Speech: clear Thought Process: tangential Perceptual Disturbances: hallucinations Suicidal Ideation: not present Assessment/Plan Assessment/Plan Problem List: (1) Psychotic disorder ICD Codes: F29 - Unspecified psychosis not due to a substance or known physiological condition SNOMED: 15944234 Assessment/Plan: depakote 1250mg po qhs risperdal 2mg po qhs Assessment/Plan Problem List: (1) Psychotic disorder ICD Codes: F29 - Unspecified psychosis not due to a substance or known physiological condition SNOMED: 77036079 Assessment/Plan: depakote 1250mg po qhs risperdal 2mg po qhs Bradley Yadav MD Sep 30, 2019 23:34
--- NOTE | 2019-10-02 11:22 | Discharge Summary ---
Discharge Summary Discharge Summary _ DATE OF ADMISSION: 09/28/2019 DATE OF DISCHARGE: 09/30/2019 DISCHARGED BY: Dr. Joana Collado CONSULTANTS: Dr. Bradley Porter BRIEF HOSPITAL COURSE: Patient is a 79-year-old male, with past medical history of psychiatric disorder , COPD, dementia, who was brought in by EMS from his extended care facility due to acute psychosis. Per EMS, patient was agitated and was trying to climb the tripp out of the facility. Patient denied any headache or head trauma. He denied chest pain or shortness of breath. Upon evaluation at ED, patient was alert and oriented. He did not recall such events. He stated he has been watching reruns on TV all day. Blood work did not show any leukocytosis. Hemoglobin and hematocrit were normal. Platelet count 107. Electrolytes were normal. BUN was elevated to 30. Urine toxicology screen was negative. Acetaminophen level normal. Salicylate normal. Serum alcohol less than 3. Chest x-ray did not show any acute process. He was seen by psychiatrist. Psychiatric medications were adjusted. Patient was given Depakote 1250 mg nightly and Risperdal 2 mg nightly. Patient had thrombocytopenia. Potential cause is multifactorial. Patient was less agitated. He was discharged back to [facility]. COVID-19 testing was negative. FINAL DIAGNOSES: Altered mental status due to psychotic disorder Thrombocytopenia Dehydration DISPOSITION: DC back to SNF. DISCHARGE MEDICATIONS: Refer to Discharge Medication List. DISCHARGE INSTRUCTIONS: Follow-up in a week. I have been assigned to complete a discharge summary on this account, I was not involved with the patient's management.--ANGELIC May Jacqueline Robles NP Oct 02, 2019 11:22
== END 2019-09-30 20:05 | DRG 683 ==
LOC: EDBD 17:19 → EMR 17:35 → 3E 17:59 → EDBEDREQ 20:20
DX: N17.9 Acute kidney failure, unspecified (principal); F02.81 Dementia in other diseases classified elsewhere, unspecified severity, with behavioral disturbance; F32.3 Major depressive disorder, single episode, severe with psychotic features; F23 Brief psychotic disorder; E86.0 Dehydration; D69.6 Thrombocytopenia, unspecified; G30.9 Alzheimer's disease, unspecified; Z87.891 Personal history of nicotine dependence; J44.9 Chronic obstructive pulmonary disease, unspecified
CPT/HCPCS: 36415; 71045; 80053; 80307; 81003; 85025; 87081; 96361; 96372; 96374; 99285; G0480; J7030; U0002

== ENCOUNTER 2020-02-10 08:20 | Inpatient (IN) | payer MEDICARE, MEDICAID ==
[~2020-02-10] VITALS: Ht 182.9 cm; Wt 77.1 kg
[~2020-02-10 08:20] MED LIST: ACETAMINOP160 MG/54 ORAL; ACETAMINOPHEN500 M5 ORAL; CALCIUM + VITA1 EAC1 PO; COLACE100 MG ORAL; CRANBERRY450 M4 PO; DEPAKOTE ER500 MG ORAL; DULCOLAX10 MG RC; FLEET ENEMA133 ML RECTAL; MILK OF MA400 MG/51 ORAL; MULTIVITAMINS1 EA13 ORAL; OSCAL D500 MG ORAL
--- NOTE | 2020-02-10 08:57 | NUR ---
ED Nurse Note: Pt was brought in by ambulance from [facility] d/t syncopal episode today earlier; no reports of head/oral trauma per EMS. Pt is AOx2, noted to be confused at times, breathing even and unlabored, skin intact, no pressure sore noted, pt's vss, satting at 96% on RA, afebrile on triage. Pt was placed on bed and gown; hooked to color television console monitor. safety measures in placed, will continue to monitor. Accucheck at 113mg/dl [employer]ER.
--- NOTE | 2020-02-10 08:58 | NUR ---
ED Nurse Note: pt was placed on bed 7
--- NOTE | 2020-02-10 09:04 | NUR ---
ED Nurse Note: ERMD at bedside.
--- NOTE | 2020-02-10 09:20 | NUR ---
ED Nurse Note: x-ray at bedside done.
[2020-02-10 09:30] VITALS: BP 112/67
[2020-02-10 10:01] LABS: APPEARANCE,URINE CLEAR; BILIRUBIN, URINE NEGATIVE (NEGATIVE); COLOR,URINE YELLOW; GLUCOSE, URINE (UA) NEGATIVE (NEGATIVE); HEMATOCRIT 45.7 % (42.0-52.0); HEMOGLOBIN 15.4 G/DL (14.2-18.0); KETONES,URINE NEGATIVE (NEGATIVE); LEUKOCYTE ESTERASE ,URINE NEGATIVE (NEGATIVE); MEAN CORPUSCULAR VOLUME 94 FL (80-99); NITRITE,URINE NEGATIVE (NEGATIVE); PH,URINE 5 (4.5-8.0); PLATELET COUNT 85 K/UL (150-450); PROTEIN,URINE 3+ (NEGATIVE); RED BLOOD COUNT 4.87 M/UL (4.70-6.10); RED CELL DISTRIBUTION WIDTH 13.2 % (11.6-14.8); UROBILINOGEN,URINE NORMAL MG/DL (0.0-1.0); WHITE BLOOD COUNT 4.9 K/UL (4.8-10.8)
[2020-02-10 10:03] LABS: NEUTROPHILS % (AUTO) 68.3 % (45.0-75.0)
[2020-02-10 10:04] LABS: BASOPHILS % (AUTO) 1.1 % (0.0-2.0); EOSINOPHILS % (AUTO) 0.1 % (0.0-3.0); LYMPHOCYTES % (AUTO) 15.5 % (20.0-45.0)
[2020-02-10 10:11] LABS: CALCIUM 8.8 MG/DL (8.5-10.1); CREATININE 1.4 MG/DL (0.55-1.30); POTASSIUM 4.6 MMOL/L (3.5-5.1)
[2020-02-10 10:23] LABS: ALBUMIN 3.6 G/DL (3.4-5.0); ALBUMIN/GLOBULIN RATIO 0.8 (1.0-2.7); BILIRUBIN,TOTAL 0.4 MG/DL (0.2-1.0)
--- NOTE | 2020-02-10 12:01 | Emergency Room Report ---
History of Present Illness General Chief Complaint: Syncope Source: Patient Present Illness HPI 79-year-old male presents with syncopal episode. Brought in by EMS from [facility] facility. Appears somewhat confused. No reported fall or head injury. No signs of distress on arrival. Patient nonverbal at baseline. No other aggravating relieving factors. Denies any other associated symptoms Allergies: Coded Allergies: No Known Allergies (Unverified , 09/28/19) COVID-19 Screening Contact w/high risk pt: No Experienced COVID-19 symptoms?: No COVID-19 Testing performed COPRA SAMPLER: Yes COVID-19 Screening: Negative COVID-19 COVID-19 Testing Source: nasal Patient History Past Medical History: COPD, dementia, other - encephalopathy Past Surgical History: none Pertinent Family History: none Social History: Denies: smoking, alcohol use, drug use Immunizations: UTD Reviewed Nursing Documentation: PMH: Agreed; PSxH: Agreed Nursing Documentation-PMH Past Medical History: No History, Except For Hx Cardiac Problems: No Hx COPD: Yes Hx Cancer: No Hx Gastrointestinal Problems: No Hx Neurological Problems: Yes - Encephalopathy, Psychosis Hx Dementia: Yes Hx Alzheimer's Disease: Yes Review of Systems All Other Systems: limited Physical Exam Vital Signs Date Time Temp Pulse Resp B/P (MAP) Pulse Ox O2 Delivery O2 Flow Rate FiO2 02/10/20 08:15 97.7 57 16 112/67 (82) 98 Room Air Sp02 EP Interpretation: reviewed, normal General Appearance: no apparent distress, non-toxic, other - nonverbal Head: normocephalic, atraumatic Eyes: bilateral eye normal inspection, bilateral eye PERRL ENT: hearing grossly normal, normal pharynx, no angioedema, normal voice Neck: full range of motion, supple/symm/no masses Respiratory: chest non-tender, lungs clear, normal breath sounds, speaking full sentences Cardiovascular #1: regular rate, rhythm, no edema Cardiovascular #2: 2+ carotid (R), 2+ carotid (L), 2+ radial (R), 2+ radial (L), 2+ dorsalis pedis (R), 2+ dorsalis pedis (L) Gastrointestinal: normal bowel sounds, non tender, soft, non-distended, no guarding, no rebound Rectal: deferred Genitourinary: normal inspection, no CVA tenderness Musculoskeletal: back normal, normal range of motion, gait/station normal, non- tender Neurologic: other - nonverbal Psychiatric: judgement/insight normal, memory normal, mood/affect normal, no suicidal/homicidal ideation Reflexes: 3+ bicep (R), 3+ bicep (L), 3+ tricep (R), 3+ tricep (L), 3+ knee (R), 3+ knee (L) Skin: other - see nursing notes Lymphatic: no adenopathy Medical Decision Making Diagnostic Impression: Primary Impression: Syncope Qualified Codes: R55 - Syncope and collapse Additional Impressions: Encephalopathy TRAY (acute kidney injury) UTI (urinary tract infection) Qualified Codes: N39.0 - Urinary tract infection, site not specified ER Course Hospital Course 79-year-old M presents ED s/p syncopal episode. Differential diagnoses include: IN/unstable angina, arrythmia, dehydration, CVA/TIA Clinical course Patient placed on stretcher. on ms sql developer. After initial history and physical I ordered labs, EKG, chest x-ray, IVFs labs reviewed- no leukocytosis, hemoglobin/hematocrit ok, BUN/Cr elevated, trop negative, UA + bacteria EKG- NSR no acute ischemic changes interpreted by me Chest x-ray- no acute process Fluids given. Antibiotics given. Covid swab sent. Case discussed with Dr. Dubois and he agreed to accept the patient to his service for further care and support I. I feel this is a highly complex case requiring extensive working including EKG/Rhythm strip, Xray/CT/US, Blood/urine lab work, repeat exams while in ED, and administration of strong opiates/narcotics for pain control, admission to hospital or close patient follow up. Diagnosis - syncope, encephalopathy, TRAY, UTI admitted to telemetry in serious condition Laboratory Tests Test 02/10/20 09:40 White Blood Count 4.9 K/UL (4.8-10.8) Red Blood Count 4.87 M/UL (4.70-6.10) Hemoglobin 15.4 G/DL (14.2-18.0) Hematocrit 45.7 % (42.0-52.0) Mean Corpuscular Volume 94 FL (80-99) Mean Corpuscular Hemoglobin 31.7 PG (27.0-31.0) H Mean Corpuscular Hemoglobin Concent 33.8 G/DL (32.0-36.0) Red Cell Distribution Width 13.2 % (11.6-14.8) Platelet Count 85 K/UL (150-450) L Mean Platelet Volume 14.5 FL (6.5-10.1) H Neutrophils (%) (Auto) 68.3 % (45.0-75.0) Lymphocytes (%) (Auto) 15.5 % (20.0-45.0) L Monocytes (%) (Auto) 15.0 % (1.0-10.0) H Eosinophils (%) (Auto) 0.1 % (0.0-3.0) Basophils (%) (Auto) 1.1 % (0.0-2.0) Urine Color Yellow Urine Appearance Clear Urine pH 5 (4.5-8.0) Urine Specific [place] 1.025 (1.005-1.035) Urine Protein 3+ (NEGATIVE) H Urine Glucose (UA) Negative (NEGATIVE) Urine Ketones Negative (NEGATIVE) Urine Blood 5+ (NEGATIVE) H Urine Nitrite Negative (NEGATIVE) Urine Bilirubin Negative (NEGATIVE) Urine Urobilinogen Normal MG/DL (0.0-1.0) Urine Leukocyte Esterase Negative (NEGATIVE) Urine RBC 30-40 /HPF (0 - 0) H Urine WBC 0-2 /HPF (0 - 0) Urine Squamous Epithelial Cells Occasional /LPF Urine Amorphous Sediment Few /LPF (NONE) H Urine Bacteria Moderate /HPF (NONE) H Sodium Level 136 MMOL/L (136-145) Potassium Level 4.6 MMOL/L (3.5-5.1) Chloride Level 101 MMOL/L (98-107) Carbon Dioxide Level 30 MMOL/L (21-32) Anion Gap 5 mmol/L (5-15) Blood Urea Nitrogen 21 mg/dL (7-18) H Creatinine 1.4 MG/DL (0.55-1.30) H Estimat Glomerular Filtration Rate 49.0 mL/min (>60) Glucose Level 126 MG/DL (74-106) H Calcium Level 8.8 MG/DL (8.5-10.1) Total Bilirubin 0.4 MG/DL (0.2-1.0) Aspartate Amino Transf (AST/SGOT) 25 U/L (15-37) Alanine Aminotransferase (ALT/SGPT) 19 U/L (12-78) Alkaline Phosphatase 71 U/L (46-116) Troponin I 0.000 ng/mL (0.000-0.056) Pro-B-Type Natriuretic Peptide 111 pg/mL (0-125) Total Protein 7.9 G/DL (6.4-8.2) Albumin 3.6 G/DL (3.4-5.0) Globulin 4.3 g/dL Albumin/Globulin Ratio 0.8 (1.0-2.7) L EKG Diagnostic Results Troponin ordered: Yes Rate: normal Rhythm: NSR ST Segments: no acute changes ASA given to the pt in ED: No Rhythm Strip Diag. Results EP Interpretation: yes Rhythm: NSR, no PVC's, no ectopy Chest X-Ray Diagnostic Results Chest X-Ray Diagnostic Results : Chest X-Ray Ordered: Yes # of Views/Limited/Complete: 1 View Indication: Other - syncope EP Interpretation: Yes Interpretation: no consolidation, no effusion, no pneumothorax, no acute cardiopulmonary disease Impression: No acute disease Electronically Signed by: Electronically signed by Leodan Bullard MD Last Vital Signs Date Time Temp Pulse Resp B/P (MAP) Pulse Ox O2 Delivery O2 Flow Rate FiO2 02/10/20 09:30 97.7 16 112/67 98 Room Air 02/10/20 08:15 57 Status: improved Disposition: ADMITTED INPATIENT Condition: Serious Referrals: Joana Dubois MD (PCP) Leodan Bullard MD Feb 10, 2020 12:01
--- NOTE | 2020-02-10 12:22 | NUR ---
ED Nurse Note: report given to Hkaeem MYRICK in telemetry unit.
--- NOTE | 2020-02-10 12:45 | NUR ---
ED Nurse Note: MRSA/CRE/VRE swabs collected, sent to lab.
--- NOTE | 2020-02-10 13:00 | NUR ---
NURSE NOTES: Patient received from ED stable with no acute signs of distress, aao x2 and placed in room 205-2. The patients belonging list was verified and acknowledged. The patient was oriented to the room and the lunchroom monitor was placed on patient. The patients bed was placed in the lowest position, locked, call light within reach, side rails were placed x3 and bed alarm was set to zone 1.
--- NOTE | 2020-02-10 13:00 | NUR ---
ED Nurse Note: pt was transferred to telemetry unit under the care of dr. payan, report for transfer was given to ELEN Palacio in tele unit. pt was transferred on stable condition. All belongings was sent with pt.
--- NOTE | 2020-02-10 13:00 | NUR ---
NURSE NOTES: Dr. Dubois contacted for patient orders and orders have been received and input.
--- NOTE | 2020-02-10 13:20 | Consultation ---
History of Present Illness General Chief Complaint: Syncope Present Illness Allergies: Coded Allergies: No Known Allergies (Unverified , 09/28/19) Medication History Scheduled Acetaminophen (Acetaminophen), 500 MG ORAL Q4H, (Reported) Calcium Carbonate (Oyster Shell Calcium-Vit D Tab), 500 MG ORAL TID, (Reported) Calcium Carbonate/Vitamin D3 (Calcium + Vitamin D Tablet), 1 EACH PO TID, (Reported) Cranberry Fruit Concentrate (Cranberry), 900 MG PO DAILY, (Reported) Divalproex Sodium* (Depakote Er*), 500 MG ORAL EVERY 12 HOURS, (Reported) Docusate Sodium* (Colace*), 100 MG ORAL DAILY, (Reported) Multivitamin with Minerals (Multivitamins with Minerals), 1 TAB ORAL DAILY, (Reported) Scheduled PRN Acetaminophen* (Acetaminophen*), 650 MG ORAL Q6H PRN for Mild Pain/Temp > 100.5, (Reported) Bisacodyl (Dulcolax), 10 MG RC NEEDED PRN for Constipation, (Reported) Magnesium Hydroxide* (Milk Of Magnesia*), 30 ML ORAL DAILY PRN for Constipation, (Reported) Na Phos,M-B/Na Phos,Di-Ba* (Fleet Enema*), 133 ML RECTAL DAILY PRN for Constipation, (Reported) Patient History Healthcare decision maker Resuscitation status Advanced Directive on File Physical Exam Last 24 Hour Vital Signs Date Time Temp Pulse Resp B/P (MAP) Pulse Ox O2 Delivery O2 Flow Rate FiO2 02/10/20 09:30 97.7 16 112/67 98 Room Air 02/10/20 08:15 97.7 57 16 112/67 (82) 98 Room Air Laboratory Tests Test 02/10/20 09:40 White Blood Count 4.9 K/UL (4.8-10.8) Red Blood Count 4.87 M/UL (4.70-6.10) Hemoglobin 15.4 G/DL (14.2-18.0) Hematocrit 45.7 % (42.0-52.0) Mean Corpuscular Volume 94 FL (80-99) Mean Corpuscular Hemoglobin 31.7 PG (27.0-31.0) H Mean Corpuscular Hemoglobin Concent 33.8 G/DL (32.0-36.0) Red Cell Distribution Width 13.2 % (11.6-14.8) Platelet Count 85 K/UL (150-450) L Mean Platelet Volume 14.5 FL (6.5-10.1) H Neutrophils (%) (Auto) 68.3 % (45.0-75.0) Lymphocytes (%) (Auto) 15.5 % (20.0-45.0) L Monocytes (%) (Auto) 15.0 % (1.0-10.0) H Eosinophils (%) (Auto) 0.1 % (0.0-3.0) Basophils (%) (Auto) 1.1 % (0.0-2.0) Urine Color Yellow Urine Appearance Clear Urine pH 5 (4.5-8.0) Urine Specific [place] 1.025 (1.005-1.035) Urine Protein 3+ (NEGATIVE) H Urine Glucose (UA) Negative (NEGATIVE) Urine Ketones Negative (NEGATIVE) Urine Blood 5+ (NEGATIVE) H Urine Nitrite Negative (NEGATIVE) Urine Bilirubin Negative (NEGATIVE) Urine Urobilinogen Normal MG/DL (0.0-1.0) Urine Leukocyte Esterase Negative (NEGATIVE) Urine RBC 30-40 /HPF (0 - 0) H Urine WBC 0-2 /HPF (0 - 0) Urine Squamous Epithelial Cells Occasional /LPF Urine Amorphous Sediment Few /LPF (NONE) H Urine Bacteria Moderate /HPF (NONE) H Sodium Level 136 MMOL/L (136-145) Potassium Level 4.6 MMOL/L (3.5-5.1) Chloride Level 101 MMOL/L (98-107) Carbon Dioxide Level 30 MMOL/L (21-32) Anion Gap 5 mmol/L (5-15) Blood Urea Nitrogen 21 mg/dL (7-18) H Creatinine 1.4 MG/DL (0.55-1.30) H Estimat Glomerular Filtration Rate 49.0 mL/min (>60) Glucose Level 126 MG/DL (74-106) H Calcium Level 8.8 MG/DL (8.5-10.1) Total Bilirubin 0.4 MG/DL (0.2-1.0) Aspartate Amino Transf (AST/SGOT) 25 U/L (15-37) Alanine Aminotransferase (ALT/SGPT) 19 U/L (12-78) Alkaline Phosphatase 71 U/L (46-116) Troponin I 0.000 ng/mL (0.000-0.056) Pro-B-Type Natriuretic Peptide 111 pg/mL (0-125) Total Protein 7.9 G/DL (6.4-8.2) Albumin 3.6 G/DL (3.4-5.0) Globulin 4.3 g/dL Albumin/Globulin Ratio 0.8 (1.0-2.7) L Height (Feet): 6 Weight (Pounds): 170 Medications Current Medications Medications (Trade) Dose Ordered Sig/Keenan Route PRN Reason Start Time Stop Time Status Last Admin Dose Admin Sodium Chloride 1,000 ml @ 200 mls/hr Q5H IV 02/10/20 10:45 03/11/20 10:44 02/10/20 10:52 Assessment/Plan Assessment/Plan: Hematology Consultation REQ MD: Joana Wilson RFC: Thrombocytopenia eval DOS: 02/10/2020 HPI Patient is a 79-year-old male past medical history of psychiatric disorder, COPD, dementia who was brought in by EMS from his extended care facility for acute psychosis. Per EMS patient started acting agitated and was trying to climb tripp out of the facility. Patient is currently alert and oriented x3. He does not recall any such event. He states he has been watching reruns on TV all day. He denies any headache or head trauma. He denies any chest pain or shortness of breath. He denies any nausea or vomiting. Patient actually declines having any acute complaints. Here for syncope and potential uti. She states that she will adjust his psychiatric medications. Noted to have a plt count of approx 80k, [facility] was consulted for eval and rx Allergies: No Known Allergies (Unverified , 09/28/19) Patient History Reviewed Nursing Documentation: PMH: Agreed; PSxH: Agreed ROS Constitutional: No fever, no chills, no night sweats, no fatigue Skin: No rashes, lumps, itchiness, dryness HEENT: No AGGE, ear ache, visual changes, double vision, nosebleeds Breasts: No lumps, pain, discharge Pulmonary: No cough, sputum, shortness of breath, coughing up blood Cardiovascular: No chest pain, tightness, palpitations, syncope, PND GI: No nausea, vomiting, diarrhea, melena, hematochezia, change in appetite, : No dysuria, frequency, urgency, urinary incontinence, foamy urine Musculoskeletal: No joint swelling or muscle pain, trauma, back pain Neurologic: No dizziness, fainting, seizures, changes in smell or taste Psychiatric: No nervousness, stress, or depression, anxiety, hallucinations Endocrine: No weight change, heat or cold intolerance, tremor, insomnia Physical Exam: Vitals: reviewed General: NAD HEENT: nc, at Neck: supple Chest: clear breath sounds bilaterally Cardiovascular: RRR, no s3, s4 Abdomen: soft, nontender, nd Extremities: no cce, normal range of motion Neuro: alert and oriented Labs noted Imaging reviewed Assessment and Recs # Thrombocytopenia - potential causes multifactorial, evaluate liver and viral etiologies to begin, also could be related to underlying medications patient has received. May be due to UTI+++ --> Hep panel and HIV ordered --> US abd to evaluate for cirrhosis and hsm ordered --> Peripheral smear ordered to evaluate for blasts /schistocytes --> is wnl --> abx and other meds have been reviewed --> ok for ppx if plt >50k w/ either heparin or lovenox --> Transfuse if Plt < 20k and fever, or if Plt < 10k without fever --> psych meds have been noted -> plt trend 107-->98-->84 # UTI as noted on ua --> abx # Dehydration --> goal of euvoemia --> ivfs as per renal # Psychosis -> psych meds noted # Acute renal failure --> cr trend as needed # Dvt ppx scds The timing of this note does not necessarily reflect the time of the patient was seen. Greatly appreciate consultation. Kin Porter MD Feb 10, 2020 13:20
--- NOTE | 2020-02-10 13:49 | Cardiac Electrophysiology PN ---
Subjective Subjective [id number] Objective Last 24 Hour Vital Signs Date Time Temp Pulse Resp B/P (MAP) Pulse Ox O2 Delivery O2 Flow Rate FiO2 02/10/20 13:27 Room Air 02/10/20 13:00 97.7 84 17 110/64 99 Room Air 02/10/20 09:30 97.7 16 112/67 98 Room Air 02/10/20 08:15 97.7 57 16 112/67 (82) 98 Room Air Laboratory Tests Test 02/10/20 09:40 White Blood Count 4.9 K/UL (4.8-10.8) Red Blood Count 4.87 M/UL (4.70-6.10) Hemoglobin 15.4 G/DL (14.2-18.0) Hematocrit 45.7 % (42.0-52.0) Mean Corpuscular Volume 94 FL (80-99) Mean Corpuscular Hemoglobin 31.7 PG (27.0-31.0) H Mean Corpuscular Hemoglobin Concent 33.8 G/DL (32.0-36.0) Red Cell Distribution Width 13.2 % (11.6-14.8) Platelet Count 85 K/UL (150-450) L Mean Platelet Volume 14.5 FL (6.5-10.1) H Neutrophils (%) (Auto) 68.3 % (45.0-75.0) Lymphocytes (%) (Auto) 15.5 % (20.0-45.0) L Monocytes (%) (Auto) 15.0 % (1.0-10.0) H Eosinophils (%) (Auto) 0.1 % (0.0-3.0) Basophils (%) (Auto) 1.1 % (0.0-2.0) Urine Color Yellow Urine Appearance Clear Urine pH 5 (4.5-8.0) Urine Specific [place] 1.025 (1.005-1.035) Urine Protein 3+ (NEGATIVE) H Urine Glucose (UA) Negative (NEGATIVE) Urine Ketones Negative (NEGATIVE) Urine Blood 5+ (NEGATIVE) H Urine Nitrite Negative (NEGATIVE) Urine Bilirubin Negative (NEGATIVE) Urine Urobilinogen Normal MG/DL (0.0-1.0) Urine Leukocyte Esterase Negative (NEGATIVE) Urine RBC 30-40 /HPF (0 - 0) H Urine WBC 0-2 /HPF (0 - 0) Urine Squamous Epithelial Cells Occasional /LPF Urine Amorphous Sediment Few /LPF (NONE) H Urine Bacteria Moderate /HPF (NONE) H Sodium Level 136 MMOL/L (136-145) Potassium Level 4.6 MMOL/L (3.5-5.1) Chloride Level 101 MMOL/L (98-107) Carbon Dioxide Level 30 MMOL/L (21-32) Anion Gap 5 mmol/L (5-15) Blood Urea Nitrogen 21 mg/dL (7-18) H Creatinine 1.4 MG/DL (0.55-1.30) H Estimat Glomerular Filtration Rate 49.0 mL/min (>60) Glucose Level 126 MG/DL (74-106) H Calcium Level 8.8 MG/DL (8.5-10.1) Total Bilirubin 0.4 MG/DL (0.2-1.0) Aspartate Amino Transf (AST/SGOT) 25 U/L (15-37) Alanine Aminotransferase (ALT/SGPT) 19 U/L (12-78) Alkaline Phosphatase 71 U/L (46-116) Troponin I 0.000 ng/mL (0.000-0.056) Pro-B-Type Natriuretic Peptide 111 pg/mL (0-125) Total Protein 7.9 G/DL (6.4-8.2) Albumin 3.6 G/DL (3.4-5.0) Globulin 4.3 g/dL Albumin/Globulin Ratio 0.8 (1.0-2.7) Mathew De Leon MD Feb 10, 2020 13:49
[2020-02-10] MEDS ORDERED: Varibar Thin Liquid powder 148gm MC PRN (15:00)
[2020-02-10] MEDS ORDERED: Varibar Nectar 240ml MC PRN (15:00)
[2020-02-10] MEDS ORDERED: Varibar Honey 250ml MC PRN (15:00)
[2020-02-10] MEDS ORDERED: Varibar Pudding 230ml MC PRN (15:00)
--- NOTE | 2020-02-10 15:29 | NUR ---
NURSE NOTES: Dr Walker's office contacted per Dr Dubois request of IVF. Left message with Jovanna.
[2020-02-10 16:00] VITALS: BP 115/62
--- NOTE | 2020-02-10 16:46 | Diagnostic Imaging Report ---
Indication: Cough Technique: One view of the chest Comparison: 11/07/2019 Findings: Heart is borderline enlarged. There is minimal interstitial disease present bilaterally, probably not changed from the previous exam allowing for technical differences. No new infiltrates. No definite effusions Impression: Borderline cardiomegaly Bilateral interstitial disease, most likely on the basis of chronic/senescent changes although mild congestion also possible
--- NOTE | 2020-02-10 19:00 | Consultation ---
DATE OF CONSULTATION: 02/10/2020 CARDIOLOGY CONSULTATION REASON FOR CONSULTATION: Syncope. HISTORY OF PRESENT ILLNESS: The patient is a 79-year-old gentleman with history of hypertension, COPD, dementia, and Alzheimer's, who [facility] from [facility] for [facility] episodes. The patient is confused. The patient initially was nonverbal, but at the time of my evaluation, he is alert and oriented x3, but denies any chest pain or shortness of breath. In the ER, blood pressure was 112/67, pulse of 57, and respirations of 16. REVIEW OF SYSTEMS: Negative other than what is mentioned in history of present illness. PAST MEDICAL HISTORY: As mentioned above. FAMILY HISTORY: Noncontributory. SOCIAL HISTORY: He is a [facility] resident. He does not smoke or drink alcohol. PHYSICAL EXAMINATION: VITAL SIGNS: Blood pressure 110/64, pulse 84, respirations 18, temperature 97.7. HEAD AND NECK: No JVD. LUNGS: Coarse rhonchi. CARDIOVASCULAR: Regular S1 and S2 with no gallop or murmur. ABDOMEN: Soft. EXTREMITIES: No pitting edema. LABORATORY AND DIAGNOSTIC DATA: Labs show white count of 4.9, hemoglobin 15.4, hematocrit 45.7, and platelet count of 85. Sodium 132, potassium 4.3, BUN of 21, and creatinine 1.4. First troponin is negative. His 12-lead EKG showed normal sinus rhythm, left anterior fascicular block. ASSESSMENT AND PLAN: 1. Syncopal episode. The etiology is not clear at this time. His first troponin is negative. BNP is almost within normal range at 111. We will completely rule out IA protocol. Repeat EKG and echocardiogram. Watch the patient on telemetry. 2. History of hypertension. Blood pressure currently is stable, off antihypertensive agents. 3. History of psychosis and dementia. 4. Thrombocytopenia. Further evaluation by Dr. Porter. 5. Mild renal failure, creatinine of 1.4. Thank you very much for allowing me to participate in the care of this patient. Please do not hesitate to contact me if you have any questions regarding my evaluation. Mathew Piedra M.D. DR: Leydi JOB#: [id number] CC:
--- NOTE | 2020-02-10 19:08 | NUR ---
NURSE HAND-OFF REPORT: Important Events on Shift:[Patient arrived from ED from SNF due to syncope episode] Patient Status: [Stable, aao x1, full code] Diet: [NPO except meds] Pending Orders: [N/A] Pending Results/Labs:[N/A] Pending MD notification:[N/A] Latest Vital Signs: Temperature 97.5 , Pulse 60 , B/P 115 /62 , Respiratory Rate 18 , O2 SAT 96 , Room Air, O2 Flow Rate . Vital Sign Comment: [] EKG Rhythm: Sinus Rhythm Rhythm change?: N MD Notified?: - MD Response: Latest Arroyo Fall Score: 50 Fall Risk: High Risk Safety Measures: Call light Within Reach, Bed Alarm Zone 1, Side Rails Side Rails x3, Bed position Low and Locked. Fall Precautions: Yellow Socks Patient Fall Education Report given to [Jeronimo Mahajan RN].
--- NOTE | 2020-02-10 19:10 | NUR ---
NURSE NOTES: Patient received from ELEN Mccoy. Patient is A/O x 1. Patient is on room air satting at 98% with no acute signs fo respiratory distress noted. Patient is calm and no complaints as of right now. Patient is noted to have an optifoam on his heels. Patient is NPO per MD order. Patient has a left 20 gauge AC, patent and flushed. Bed is in the lowest position and locked, call light within reach. Will continue to monitor.
[2020-02-10 20:00] VITALS: BP 108/75
--- NOTE | 2020-02-10 22:15 | History and Physical Report ---
DATE OF ADMISSION: 02/10/2020 HISTORY OF PRESENT ILLNESS: Patient comes in with syncopal episode from the snf. Patient is a poor historian, cannot give us good history at all. Patient is nonverbal. Patient is admitted for syncopal episode. Patient also comes from a facility with a COVID outbreak. Patient is nonverbal, so cannot get any more history. Patient also being admitted for UTI and acute renal failure. Patient also has low platelets. PAST MEDICAL HISTORY: Organic brain syndrome, COPD, dementia, Alzheimer's, constipation. PAST SURGICAL HISTORY: Unable to obtain. SOCIAL HISTORY: Unable to obtain. REVIEW OF SYSTEMS: Unable to obtain. Nonverbal. FAMILY HISTORY: Noncontributory. MEDICATIONS: Bisacodyl, Depakote, docusate. ALLERGIES: No known allergies. PHYSICAL EXAMINATION: VITAL SIGNS: Temperature 97.7, pulse 84, blood pressure 110/64. HEENT: PERRLA. CHEST: Clear to auscultation. CARDIOVASCULAR: Regular rate and rhythm. No murmurs or extra sounds. GASTROINTESTINAL: Soft, nontender, nondistended. No organomegaly. EXTREMITIES: No edema. Dorsal pedis pulses are present. NEUROLOGIC: Does not follow neurological exam, nonverbal. Generalized weakness. EKG shows normal sinus rhythm. LABORATORY DATA: WBC of 4.9, hemoglobin of 15.4, platelets of 85. Sodium 136, potassium of 4.6, BUN of 21, creatinine of 1.4, glucose of 126. ASSESSMENT AND PLAN: Syncope, UTI, acute renal failure, dehydration. I have asked Dr. Amador Gallo, Dr. Piedra, , Dr. Walker to see the patient for the workup of the syncope as well as for dehydration as well as for the treatment of acute renal failure and UTI. Joana Dubois M.D. DR: KIN JOB#: [id number] CC:
[2020-02-11] VITALS: BP 118/71
[2020-02-11] MEDS: Acetaminophen 500mg (ES) tab ORAL PRN ×3 (02:27→16:33)
[2020-02-11 04:00] VITALS: BP 133/74
--- NOTE | 2020-02-11 07:30 | NUR ---
NURSE NOTES: Received patient in bed. Awake, A/O x2. On room air, respirations unlabored. Patient denies pain. IV in the Right AC, site intact,heart monitor on. Bed rails up x2, call light within reach with return demonstration.
[2020-02-11 07:34] LABS: HEMATOCRIT 42.6 % (42.0-52.0); HEMOGLOBIN 14.6 G/DL (14.2-18.0); MEAN CORPUSCULAR VOLUME 94 FL (80-99); PLATELET COUNT 85 K/UL (150-450); RED BLOOD COUNT 4.52 M/UL (4.70-6.10); RED CELL DISTRIBUTION WIDTH 12.8 % (11.6-14.8); WHITE BLOOD COUNT 4.4 K/UL (4.8-10.8)
--- NOTE | 2020-02-11 07:40 | NUR ---
NURSE HAND-OFF REPORT: Important Events on Shift:[12 lead ECG showed SR] Patient Status: [Stable] Diet: [NPO] Pending Orders: [] Pending Results/Labs:[] Pending MD notification:[] Latest Vital Signs: Temperature 98.8 , Pulse 72 , B/P 133 /74 , Respiratory Rate 24 , O2 SAT 95 , Room Air, O2 Flow Rate . Vital Sign Comment: [] EKG Rhythm: Sinus Rhythm Rhythm change?: N MD Notified?: - MD Response: Latest Arroyo Fall Score: 50 Fall Risk: High Risk Safety Measures: Call light Within Reach, Bed Alarm Zone 2, Side Rails Side Rails x2, Bed position Low and Locked. Fall Precautions: Yellow Socks Patient Fall Education Report given to [ELEN Mccoy].
[2020-02-11 07:47] LABS: CALCIUM 8.2 MG/DL (8.5-10.1); CREATININE 1.3 MG/DL (0.55-1.30); POTASSIUM 4.4 MMOL/L (3.5-5.1)
[2020-02-11 08:00] VITALS: BP 121/73
--- NOTE | 2020-02-11 10:13 | NUR ---
CASE MANAGEMENT:INITIAL REVIEW 79 YR OLD MALE BIBA FROM [facility] CC;SYNCOPE SI;SYNCOPE. ENCEPHALOPATHY. UTI. TRAY. COVID PUI 97.7 58 16 112/67 98% ON RA PLT 85 BUN 21 CR 1.4 BG 126 UA+ PROTEIN, BLOOD, RBC, AMORPHOUS SEDIMENT, BACTERIA HEP PANEL ~ RESULTS PENDING URINE CX ~ NEGATIVE CXR ~ Borderline cardiomegaly Bilateral interstitial disease, most likely on the basis of chronic/senescent changes although mild congestion also possible IS;LEVAQUIN IV IVF NS BOLUS ADMITTED TO TELEMETRY TELE STATUS DCP;FROM [facility]
--- NOTE | 2020-02-11 10:15 | Consultation ---
Consult Note Consult Note NEUROLOGY CONSULTATION DATE OF CONSULTATION: 02/11/2020 YVONNE MD: Dr. Flynn REASON FOR REFERRAL: Syncope HPI: This is a 79 year old male patient who presented to [facility] from [facility] for unresponsiveness. [facility] staff states that he was found unresponsive and unconscious. He has history of Dementia, Alzheimer, Psychosis, history of encephalopathy hypocalcemia, copd, tobacco use, anxiety, tray, presbyopia, he is following a psychiatrist at the assisted. Upon medication review in the chart he is on Depakote 500mg po bid.No mention of seizure history but will call his brother for more information. Currently patient is seen in isolation room for rule out covid 19 disease he is alert and oriented x2 he is speaking off tangent about taking [employer] and traveling to [place], however he is oriented to self, and place at this time.[facility] staff also stated that his baseline mentation is axo2-3. He is a poor historian at this time. Upon work up cxr reviewed cardiomegaly, 12 lead ekg revealed NSR LAFB, We were consulted for syncope. Past Medical History: Dementia, Alzheimer Disease, Psychosis, history of encephalopathy hypocalcemia, copd, tobacco use, anxiety, tray, presbyopia. Past Surgical History: Unknown Family History: unknown Medications from assisted in [place]: Calcium, Vit D, Depakote MOM, MVI, Dilcolax, Tylenol. Allergies: NKDA ROS unable to assess Physical Exam Objective: Pt is not in acute distress, resting in bed. VSS: Reviewed Neuro: Awake, Alert and Oriented to self and place, speaking off tangent, not able to follow commands Motor: Not able to participate in full exam Gait not assessed Facial expression are symmetric Lab Data:white count of 4.9, hemoglobin 15.4, hematocrit 45.7, and platelet count of 85. Sodium 132, potassium 4.3, BUN of 21, and creatinine 1.4. 12-lead EKG showed normal sinus rhythm, left anterior fascicular block Imaging: Reviewed Medications: Reviewed Assessment and Rec's: 1. Syncope --> unknown etiology at this time, cardiology rec's appreciated --> Will order CT Head without contrast for further evaluation, --> differentials neurally mediated including vasovagal, orthostasis/dysautonomia, arrhythmia and polypharmacy 2. Depakote unknown indication --> will call family and assisted for indication of depakote use --> could be for pysch related disorder 3. Dementia and Alzheimer History --> at baseline cont supportive care 4. Rule Out Covid --> on isolation came from assisted no resp distress nurse reports fever 5. Hypocalcemia 6. Thrombocytopenia 7. Copd --> stable 8. TRAY Thank You for allowing us to participate in [facility] care of this ptient consutlation greatly appreciated. Discussed in detail with my supervising physician Dr. Nicko Salcido, who is agreement with plan of care. Time of this note does not reflect time of patient evaluation. Sabina Murguia NP Feb 11, 2020 10:15
[2020-02-11 12:00] VITALS: BP 147/75
--- NOTE | 2020-02-11 12:30 | Diagnostic Imaging Report ---
EXAM: CT Head Without Intravenous Contrast CLINICAL HISTORY: FAINT TECHNIQUE: Axial computed tomography images of the head/brain without intravenous contrast. CTDI is 53.4 mGy and DLP is 1072.20 mGy-cm. One or more of the following dose reduction techniques were used: automated exposure control, adjustment of the mA and/or kV according to patient size, use of iterative reconstruction technique. COMPARISON: None FINDINGS: Brain: No acute infarct or hemorrhage identified. No extra-axial fluid collection. No mass effect or midline shift. Scattered areas of hypoattenuation in the supratentorial white matter likely represent chronic small vessel ischemic changes. Ventricles and sulci: Prominence of the ventricles and sulci is likely secondary to cerebral volume loss. Bones: Degenerative changes of the temporomandibular joints. No bony lesion or acute fracture. Subcutaneous tissues: Normal. Sinuses: Mild mucosal thickening in the maxillary sinuses. Mastoid air cells: Normal. Orbits: Grossly unremarkable. Other: Atherosclerotic calcifications in the intracranial vasculature. IMPRESSION: 1. No acute intracranial abnormality. 2. Chronic small vessel ischemic changes and cerebral volume loss.
--- NOTE | 2020-02-11 12:55 | Cardiology Report ---
APPROVED REPORT EKG Measurement Heart [id number] <Conclusion> Normal sinus rhythm Left axis deviation Abnormal ECG
--- NOTE | 2020-02-11 12:57 | Cardiology Report ---
APPROVED REPORT EKG Measurement Heart [id number] <Conclusion> Normal sinus rhythm Left axis deviation Abnormal ECG
--- NOTE | 2020-02-11 14:07 | Cardiology Report ---
APPROVED REPORT EXAM: Two-dimensional and M-mode echocardiogram with Doppler and color Doppler. INDICATION Syncope M-Mode DIMENSIONS IVSd1.0 (0.7-1.1cm)Left Atrium (MM)4.0 (1.6-4.0cm) LVDd4.5 (3.5-5.6cm)Aortic Root3.0 (2.0-3.7cm) PWd1.1 (0.7-1.1cm)Aortic Cusp Exc.2.0 (1.5-2.0cm) IVSs1.8 cmEPSS0.9 (>1.0cm) LVDs2.8 (2.5-4.0cm) PWs1.3 cm <Conclusion> Limited study due to patient's request to end the exam early. Normal left ventricular chamber size, systolic function and wall motion to extent visualized. Left ventricular ejection fraction grossly estimated to be 55 %. No left ventricular hypertrophy. No evidence of pericardial effusion. Focal aortic valve sclerosis with adequate cusp excursion. Thickened mitral valve leaflets with normal excursion. Mitral annulus and aortic root calcification. Pulmonic valve not well visualized. Normal tricuspid valve structure. Apical 4-chamber and subcostal views unobtainable due to pt's refusal. Trace to mild tricuspid regurgitation.
--- NOTE | 2020-02-11 14:27 | NUR ---
NURSE NOTES: Dr Alejandro Gallo contacted regarding COVID positive result. Dr Gallo to see patient tomorrow.
--- NOTE | 2020-02-11 15:00 | NUR ---
NURSE NOTES: Dr Dubois contacted for diet order. New order for puree moist diet.
[2020-02-11 16:00] VITALS: BP 139/79
--- NOTE | 2020-02-11 16:57 | General Progress Note ---
Subjective ROS Limited/Unobtainable: Yes Allergies: Coded Allergies: No Known Allergies (Unverified , 09/28/19) Objective Last 24 Hour Vital Signs Date Time Temp Pulse Resp B/P (MAP) Pulse Ox O2 Delivery O2 Flow Rate FiO2 02/11/20 16:33 100.7 02/11/20 16:00 99.0 94 20 139/79 (99) 94 02/11/20 12:00 64 02/11/20 12:00 97.9 99 20 147/75 (99) 94 02/11/20 09:00 98.8 02/11/20 09:00 Room Air 02/11/20 08:00 76 02/11/20 08:00 100.8 90 20 121/73 (89) 93 02/11/20 04:00 98.8 84 24 133/74 (93) 95 02/11/20 04:00 72 02/11/20 02:57 98.8 02/11/20 00:00 77 02/11/20 00:00 100.9 84 24 118/71 (87) 96 02/10/20 21:00 Room Air 02/10/20 20:00 99.3 69 24 108/75 (86) 96 02/10/20 20:00 60 Intake and Output 02/10/20 02/11/20 19:00 07:00 Output Total 500 ml Balance -500 ml Output Urine Total 500 ml # Voids 2 Laboratory Tests 02/11/20 07:05: White Blood Count 4.4L, Red Blood Count 4.52L, Hemoglobin 14.6, Hematocrit 42.6, Mean Corpuscular Volume 94, Mean Corpuscular Hemoglobin 32.3H, Mean Corpuscular Hemoglobin Concent 34.3, Red Cell Distribution Width 12.8, Platelet Count 85L, Mean Platelet Volume 11.3H, Neutrophils (%) (Auto) , Lymphocytes (%) (Auto) , Monocytes (%) (Auto) , Eosinophils (%) (Auto) , Basophils (%) (Auto) , Differential Total Cells Counted 100, Neutrophils % (Manual) 74, Lymphocytes % (Manual) 15L, Monocytes % (Manual) 11H, Eosinophils % (Manual) 0, Basophils % (Manual) 0, Band Neutrophils 0, Platelet Estimate DecreasedL, Platelet Morphology Normal, Red Blood Cell Morphology Normal, Anisocytosis 1+, Sodium Level 136, Potassium Level 4.4, Chloride Level 100, Carbon Dioxide Level 27, Anion Gap 9, Blood Urea Nitrogen 20H, Creatinine 1.3, Estimat Glomerular Filtration Rate 53.4, Glucose Level 108H, Calcium Level 8.2L, Troponin I 0.000, Pro-B-Type Natriuretic Peptide 49 Height (Feet): 6 Height (Inches): 0.00 Weight (Pounds): 170 Assessment/Plan Problem List: (1) Encephalopathy ICD Codes: G93.40 - Encephalopathy, unspecified SNOMED: 40265469 (2) UTI (urinary tract infection) ICD Codes: N39.0 - Urinary tract infection, site not specified SNOMED: 53451084 Qualifiers: Qualified Codes: N39.0 - Urinary tract infection, site not specified (3) TRAY (acute kidney injury) ICD Codes: N17.9 - Acute kidney failure, unspecified SNOMED: 33146942, 2042486 (4) Syncope ICD Codes: R55 - Syncope and collapse SNOMED: 151356886 Qualifiers: Qualified Codes: R55 - Syncope and collapse (5) Psychotic disorder ICD Codes: F29 - Unspecified psychosis not due to a substance or known physiological condition SNOMED: 89094743 Status: progressing Assessment/Plan: afebrile reviewed chart and labs uti syncope vitals stable no acute events Joana Dubois MD Feb 11, 2020 16:57
--- NOTE | 2020-02-11 17:33 | Cardiac Electrophysiology PN ---
Assessment/Plan Assessment/Plan 1. Syncopal episode. The etiology is not clear at this time. Ruled out for LA EF 55%. No CP 2. History of hypertension. Blood pressure currently is stable, off antihypertensive agents. 3. History of psychosis and dementia. 4. Thrombocytopenia. Further evaluation by Dr. Porter. 5. Mild renal failure, creatinine of 1.4. 6. Fever and Covid PNA Subjective Subjective In Covid isolation. Febrile. No CP or SOB.Head CT was negative Objective Last 24 Hour Vital Signs Date Time Temp Pulse Resp B/P (MAP) Pulse Ox O2 Delivery O2 Flow Rate FiO2 02/11/20 16:33 100.7 02/11/20 16:00 99.0 94 20 139/79 (99) 94 02/11/20 12:00 64 02/11/20 12:00 97.9 99 20 147/75 (99) 94 02/11/20 09:00 98.8 02/11/20 09:00 Room Air 02/11/20 08:00 76 02/11/20 08:00 100.8 90 20 121/73 (89) 93 02/11/20 04:00 98.8 84 24 133/74 (93) 95 02/11/20 04:00 72 02/11/20 02:57 98.8 02/11/20 00:00 77 02/11/20 00:00 100.9 84 24 118/71 (87) 96 02/10/20 21:00 Room Air 02/10/20 20:00 99.3 69 24 108/75 (86) 96 02/10/20 20:00 60 Intake and Output 02/10/20 02/11/20 19:00 07:00 Output Total 500 ml Balance -500 ml Output Urine Total 500 ml # Voids 2 Laboratory Tests Test 02/11/20 07:05 White Blood Count 4.4 K/UL (4.8-10.8) L Red Blood Count 4.52 M/UL (4.70-6.10) L Hemoglobin 14.6 G/DL (14.2-18.0) Hematocrit 42.6 % (42.0-52.0) Mean Corpuscular Volume 94 FL (80-99) Mean Corpuscular Hemoglobin 32.3 PG (27.0-31.0) H Mean Corpuscular Hemoglobin Concent 34.3 G/DL (32.0-36.0) Red Cell Distribution Width 12.8 % (11.6-14.8) Platelet Count 85 K/UL (150-450) L Mean Platelet Volume 11.3 FL (6.5-10.1) H Neutrophils (%) (Auto) % (45.0-75.0) Lymphocytes (%) (Auto) % (20.0-45.0) Monocytes (%) (Auto) % (1.0-10.0) Eosinophils (%) (Auto) % (0.0-3.0) Basophils (%) (Auto) % (0.0-2.0) Differential Total Cells Counted 100 Neutrophils % (Manual) 74 % (45-75) Lymphocytes % (Manual) 15 % (20-45) L Monocytes % (Manual) 11 % (1-10) H Eosinophils % (Manual) 0 % (0-3) Basophils % (Manual) 0 % (0-2) Band Neutrophils 0 % (0-8) Platelet Estimate Decreased L Platelet Morphology Normal Red Blood Cell Morphology Normal Anisocytosis 1+ Sodium Level 136 MMOL/L (136-145) Potassium Level 4.4 MMOL/L (3.5-5.1) Chloride Level 100 MMOL/L (98-107) Carbon Dioxide Level 27 MMOL/L (21-32) Anion Gap 9 mmol/L (5-15) Blood Urea Nitrogen 20 mg/dL (7-18) H Creatinine 1.3 MG/DL (0.55-1.30) Estimat Glomerular Filtration Rate 53.4 mL/min (>60) Glucose Level 108 MG/DL (74-106) H Calcium Level 8.2 MG/DL (8.5-10.1) L Troponin I 0.000 ng/mL (0.000-0.056) Pro-B-Type Natriuretic Peptide 49 pg/mL (0-125) Microbiology Date/Time Source Procedure Growth Status 02/10/20 12:58 Rectum Received 02/10/20 09:40 Urine,Clean Catch Urine Culture - Preliminary NO GROWTH Resulted 02/10/20 09:30 Nasopharynx Coronavirus COVID-19 PCR ([facility]) - Final Complete Objective HEAD AND NECK: No JVD. LUNGS: Coarse rhonchi. CARDIOVASCULAR: Regular S1 and S2 with no gallop or murmur. ABDOMEN: Soft. EXTREMITIES: No pitting edema. Mathew Piedra MD Feb 11, 2020 17:33
--- NOTE | 2020-02-11 19:07 | NUR ---
NURSE HAND-OFF REPORT: Important Events on Shift:[COVID + result, CT head] Patient Status: [FULL CODE, stable] Diet: [puree NTL] Pending Orders: [] Pending Results/Labs:[] Pending MD notification:[] Latest Vital Signs: Temperature 98.9 , Pulse 80 , B/P 139 /79 , Respiratory Rate 20 , O2 SAT 94 , Room Air, O2 Flow Rate . Vital Sign Comment: [] EKG Rhythm: Sinus Rhythm Rhythm change?: N MD Notified?: - MD Response: Latest Arroyo Fall Score: 50 Fall Risk: High Risk Safety Measures: Call light Within Reach, Bed Alarm Zone 2, Side Rails Side Rails x2, Bed position Low and Locked. Fall Precautions: Yellow Socks Patient Fall Education Report given to [Jessie RN].
--- NOTE | 2020-02-11 19:10 | NUR ---
NURSE NOTES: Received patient in bed. Awake, alert x2-3, On room air, respirations unlabored. Patient denies pain. Peripheral IV on Right AC, 20 g, site intact, Bed locked, in lowest position, side rails up x2, call light within reach, will continue to monitor pt
[2020-02-11 20:00] VITALS: BP 119/79
[2020-02-12] VITALS: BP 133/79
[2020-02-12 04:00] VITALS: BP 104/55
--- NOTE | 2020-02-12 06:31 | Hematology/Onc Progress Note ---
Assessment/Plan Assessment/Plan Assessment and Recs # Thrombocytopenia - potential causes multifactorial, evaluate liver and viral etiologies to begin, also could be related to underlying medications patient has received. May be due to UTI+++ --> Hep panel and HIV ordered --> US abd to evaluate for cirrhosis and hsm ordered --> Peripheral smear ordered to evaluate for blasts /schistocytes --> is wnl --> abx and other meds have been reviewed --> ok for ppx if plt >50k w/ either heparin or lovenox --> Transfuse if Plt < 20k and fever, or if Plt < 10k without fever --> psych meds have been noted -> plt trend 107-->98-->84 # Leukopenia is due to above as well, uti --> wbc 4.4 # UTI as noted on ua --> abx # Dehydration --> goal of euvoemia --> ivfs as per renal # Psychosis -> psych meds noted # Acute renal failure --> cr trend as needed # Dvt ppx scds The timing of this note does not necessarily reflect the time of the patient was seen. Greatly appreciate consultation. Subjective HEENT: Denies: no symptoms, eye pain, blurred vision, tearing, double vision, ear pain, ear discharge, nose pain, nose congestion, throat pain, throat swelling, mouth pain, mouth swelling, other Respiratory: Denies: no symptoms, cough, shortness of breath, SOB with excertion, SOB at rest, sputum, wheezing, other Gastrointestinal/Abdominal: Denies: no symptoms, abdomen distended, abdominal pain, black stools, tarry stools, blood in stool, constipated, diarrhea, difficulty swallowing, nausea, poor appetite, poor fluid intake, rectal bleeding, vomiting, other Genitourinary: Denies: no symptoms, burning, discharge, frequency, flank pain, hematuria, incontinence, pain, urgency, other Neurologic/Psychiatric: Denies: no symptoms, anxiety, depressed, emotional pro blems, headache, numbness, paresthesia, pre-existing deficit, seizure, tingling, tremors, weakness, other Endocrine: Denies: no symptoms, excessive sweating, flushing, intolerance to cold, intolerance to heat, increased hunger, increased thirst, increased urine, unexplained weight gain, unexplained weight loss, other Hematologic/Lymphatic: Denies: no symptoms, anemia, easy bleeding, easy bruising, adenopathy, other Allergies: Coded Allergies: No Known Allergies (Unverified , 09/28/19) Subjective 02/11 labs reviewed, meds noted, wbc lower, hep and hiv pending, covid iso Objective Objective Current Medications Medications (Trade) Dose Ordered Sig/[place] Route PRN Reason Start Time Stop Time Status Last Admin Dose Admin Acetaminophen (Tylenol) 500 mg Q4H PRN ORAL Temp >100.5 02/11/20 01:45 03/12/20 01:44 02/11/20 16:33 Acetaminophen (Tylenol) 500 mg Q6H PRN ORAL Mild Pain (Pain Scale 1-3) 02/10/20 14:30 03/11/20 14:29 02/11/20 08:30 Barium Sulfate (Varibar Honey) 250 ml NOW PRN RAD 02/10/20 15:00 02/13/20 14:59 Barium Sulfate (Varibar [place]) 240 ml NOW PRN RAD 02/10/20 15:00 02/13/20 14:59 Barium Sulfate (Varibar Pudding) 230 ml NOW PRN RAD 02/10/20 15:00 02/13/20 14:59 Barium Sulfate (Varibar Thin Liquid powder) 148 gm NOW PRN RAD 02/10/20 15:00 02/13/20 14:59 Last 24 Hour Vital Signs Date Time Temp Pulse Resp B/P (MAP) Pulse Ox O2 Delivery O2 Flow Rate FiO2 02/12/20 04:00 97.9 80 20 104/55 (71) 95 02/12/20 04:00 75 02/12/20 00:00 77 02/12/20 00:00 98.1 85 20 133/79 (97) 94 02/11/20 21:00 Room Air 02/11/20 20:00 79 02/11/20 20:00 97.2 82 20 119/79 (92) 95 02/11/20 17:03 98.9 02/11/20 16:33 100.7 02/11/20 16:00 99.0 94 20 139/79 (99) 94 02/11/20 16:00 80 02/11/20 12:00 64 02/11/20 12:00 97.9 99 20 147/75 (99) 94 02/11/20 09:00 98.8 02/11/20 09:00 Room Air 02/11/20 08:00 76 02/11/20 08:00 100.8 90 20 121/73 (89) 93 02/11/20 04:00 98.8 84 24 133/74 (93) 95 02/11/20 04:00 72 02/11/20 02:57 98.8 02/11/20 00:00 77 02/11/20 00:00 100.9 84 24 118/71 (87) 96 02/10/20 21:00 Room Air 02/10/20 20:00 99.3 69 24 108/75 (86) 96 02/10/20 20:00 60 02/10/20 16:00 60 02/10/20 16:00 97.5 58 18 115/62 (79) 96 02/10/20 13:27 Room Air 02/10/20 13:00 97.7 84 17 110/64 99 Room Air 02/10/20 09:30 97.7 16 112/67 98 Room Air 02/10/20 08:15 97.7 57 16 112/67 (82) 98 Room Air Intake and Output 02/11/20 02/12/20 19:00 07:00 Intake Total 240 ml Output Total 300 ml Balance -60 ml Intake Oral 240 ml Output Urine Total 300 ml Labs Test 02/10/20 09:40 02/11/20 07:05 White Blood Count 4.9 K/UL (4.8-10.8) 4.4 K/UL (4.8-10.8) Red Blood Count 4.87 M/UL (4.70-6.10) 4.52 M/UL (4.70-6.10) Hemoglobin 15.4 G/DL (14.2-18.0) 14.6 G/DL (14.2-18.0) Hematocrit 45.7 % (42.0-52.0) 42.6 % (42.0-52.0) Mean Corpuscular Volume 94 FL (80-99) 94 FL (80-99) Mean Corpuscular Hemoglobin 31.7 PG (27.0-31.0) 32.3 PG (27.0-31.0) Mean Corpuscular Hemoglobin Concent 33.8 G/DL (32.0-36.0) 34.3 G/DL (32.0-36.0) Red Cell Distribution Width 13.2 % (11.6-14.8) 12.8 % (11.6-14.8) Platelet Count 85 K/UL (150-450) 85 K/UL (150-450) Mean Platelet Volume 14.5 FL (6.5-10.1) 11.3 FL (6.5-10.1) Neutrophils (%) (Auto) 68.3 % (45.0-75.0) % (45.0-75.0) Lymphocytes (%) (Auto) 15.5 % (20.0-45.0) % (20.0-45.0) Monocytes (%) (Auto) 15.0 % (1.0-10.0) % (1.0-10.0) Eosinophils (%) (Auto) 0.1 % (0.0-3.0) % (0.0-3.0) Basophils (%) (Auto) 1.1 % (0.0-2.0) % (0.0-2.0) Urine Color Yellow Urine Appearance Clear Urine pH 5 (4.5-8.0) Urine Specific [place] 1.025 (1.005-1.035) Urine Protein 3+ (NEGATIVE) Urine Glucose (UA) Negative (NEGATIVE) Urine Ketones Negative (NEGATIVE) Urine Blood 5+ (NEGATIVE) Urine Nitrite Negative (NEGATIVE) Urine Bilirubin Negative (NEGATIVE) Urine Urobilinogen Normal MG/DL (0.0-1.0) Urine Leukocyte Esterase Negative (NEGATIVE) Urine RBC 30-40 /HPF (0 - 0) Urine WBC 0-2 /HPF (0 - 0) Urine Squamous Epithelial Cells Occasional /LPF Urine Amorphous Sediment Few /LPF (NONE) Urine Bacteria Moderate /HPF (NONE) Sodium Level 136 MMOL/L (136-145) 136 MMOL/L (136-145) Potassium Level 4.6 MMOL/L (3.5-5.1) 4.4 MMOL/L (3.5-5.1) Chloride Level 101 MMOL/L (98-107) 100 MMOL/L (98-107) Carbon Dioxide Level 30 MMOL/L (21-32) 27 MMOL/L (21-32) Anion Gap 5 mmol/L (5-15) 9 mmol/L (5-15) Blood Urea Nitrogen 21 mg/dL (7-18) 20 mg/dL (7-18) Creatinine 1.4 MG/DL (0.55-1.30) 1.3 MG/DL (0.55-1.30) Estimat Glomerular Filtration Rate 49.0 mL/min (>60) 53.4 mL/min (>60) Glucose Level 126 MG/DL (74-106) 108 MG/DL (74-106) Calcium Level 8.8 MG/DL (8.5-10.1) 8.2 MG/DL (8.5-10.1) Total Bilirubin 0.4 MG/DL (0.2-1.0) Aspartate Amino Transf (AST/SGOT) 25 U/L (15-37) Alanine Aminotransferase (ALT/SGPT) 19 U/L (12-78) Alkaline Phosphatase 71 U/L (46-116) Troponin I 0.000 ng/mL (0.000-0.056) 0.000 ng/mL (0.000-0.056) Pro-B-Type Natriuretic Peptide 111 pg/mL (0-125) 49 pg/mL (0-125) Total Protein 7.9 G/DL (6.4-8.2) Albumin 3.6 G/DL (3.4-5.0) Globulin 4.3 g/dL Albumin/Globulin Ratio 0.8 (1.0-2.7) Differential Total Cells Counted 100 Neutrophils % (Manual) 74 % (45-75) Lymphocytes % (Manual) 15 % (20-45) Monocytes % (Manual) 11 % (1-10) Eosinophils % (Manual) 0 % (0-3) Basophils % (Manual) 0 % (0-2) Band Neutrophils 0 % (0-8) Platelet Estimate Decreased Platelet Morphology Normal Red Blood Cell Morphology Normal Anisocytosis 1+ Height (Feet): 6 Height (Inches): 0.00 Weight (Pounds): 170 Objective Physical Exam: Vitals: reviewed General: NAD HEENT: nc, at Neck: supple Chest: clear breath sounds bilaterally Cardiovascular: RRR, no s3, s4 Abdomen: soft, nontender, nd Extremities: no cce, normal range of motion Neuro: alert and oriented KleynbergKin. MD Feb 12, 2020 06:31
--- NOTE | 2020-02-12 06:49 | NUR ---
NURSE HAND-OFF REPORT: Important Events on Shift: pt appears to be constipated, incontinent, applied condom catheter . Pt had hard stool, no meds or stool softener available so will endorse to am shift Patient Status: [FULL CODE, stable] Diet: [regular, pureed moist, nectar thick liquids Pending Orders: [am labs cbc bmp] Pending Results/Labs:[cbc bmp, just added by [place]- HIV and hepatitis panel to am lab draw EKG Rhythm: Sinus Rhythm Latest Arroyo Fall Score: 50 Fall Risk: High Risk Safety Measures: Call light Within Reach, Bed Alarm Zone 2, Side Rails Side Rails x2, Bed position Low and Locked. Fall Precautions: Yellow Socks Patient Fall Education Report given to Osito Puckett RN
--- NOTE | 2020-02-12 07:00 | NUR ---
NURSE NOTES: Received patient in bed asleep. IV line intact and patent. SCDs in place. Condom catheter in place, draining yellow colored urine. HOB elevated. Bed locked in low position. Call light within reach. Will continue plan of care.
[2020-02-12 07:09] LABS: ANION GAP 8 mmol/L (5-15); BLOOD UREA NITROGEN 19 mg/dL (7-18); CALCIUM 8.2 MG/DL (8.5-10.1); CARBON DIOXIDE 24 MMOL/L (21-32); CHLORIDE 101 MMOL/L (98-107); CREATININE 1.1 MG/DL (0.55-1.30); POTASSIUM 4.4 MMOL/L (3.5-5.1); SODIUM 133 MMOL/L (136-145)
[2020-02-12 07:11] LABS: HEMATOCRIT 42.7 % (42.0-52.0); HEMOGLOBIN 15.3 G/DL (14.2-18.0); MEAN CORPUSCULAR VOLUME 91 FL (80-99); PLATELET COUNT 78 K/UL (150-450); RED BLOOD COUNT 4.71 M/UL (4.70-6.10); RED CELL DISTRIBUTION WIDTH 12.3 % (11.6-14.8); WHITE BLOOD COUNT 3.7 K/UL (4.8-10.8)
[2020-02-12 08:00] VITALS: BP 113/65
[2020-02-12] MEDS: Acetaminophen 500mg (ES) tab ORAL PRN ×2 (10:00→13:12)
[2020-02-12 12:00] VITALS: BP 105/80
--- NOTE | 2020-02-12 13:33 | NUR ---
NURSE NOTES: Patient with elevated temperature, has been refusing tylenol since this AM. Cooling measures done.
--- NOTE | 2020-02-12 14:30 | Consultation ---
DATE OF CONSULTATION: 02/12/2020 INFECTIOUS DISEASES CONSULTATION CONSULTING PHYSICIAN: Amador Gallo MD PRIMARY ATTENDING PHYSICIAN: Joana Dubois MD REASON FOR CONSULTATION: COVID-19 disease. HISTORY OF PRESENT ILLNESS: This is a 79-year-old white male admitted on 02/09 from custodial facility because of syncopal episode. The patient also had low-grade fever, maximum temperature in hospital is 100.9. COVID test became positive. PAST MEDICAL HISTORY: COPD, dementia. ALLERGIES: No known drug allergies. MEDICATIONS: Getting Tylenol. SOCIAL HISTORY: retirement resident, single. REVIEW OF SYSTEMS: Poor historian, uncooperative. PHYSICAL EXAMINATION: VITAL SIGNS: Temperature 100.8, pulse 76, blood pressure 105/80, oxygen saturation on room air 91%. GENERAL APPEARANCE: Seems to have normal weight. HEAD AND NECK: [place] conjunctiva. HEART: Normal rate. LUNGS: Few rhonchi. ABDOMEN: Soft. EXTREMITIES: No edema. NEUROLOGIC: Awake, alert, verbal. LABORATORY AND DIAGNOSTIC DATA: COVID-19 positive. Urine culture negative. MRSA screen negative. VRE screen negative. WBC 3.1, hemoglobin 15.3, hematocrit 42.7, and platelets is 78. Sodium 133, potassium 4.4, chloride 101, bicarb 24, BUN 19, creatinine 1.1, glucose 104. Hepatitis serologies negative. HIV test negative. Chest x-ray, bilateral interstitial disease, likely chronic. Head CT, no acute intracranial abnormality. Echocardiogram showed ejection fraction of 55%. IMPRESSION: 1. COVID-19 disease. 2. Hypoxemia. 3. COPD. 4. Syncopal episode. 5. Leukopenia and thrombocytopenia with lymphopenia RECOMMENDATION: Started on ceftriaxone. We will repeat chest x-ray. We will consider Remdesivir. Start on dexamethasone. At the end of my exam, I thank Dr. Dubois, for involving me in the care of this patient. Amador Gallo M.D. DR: Андрей JOB#: [id number] CC: MARILU
[2020-02-12] MEDS: cefTRIAXone 1 GM in D5W 55 ML IVPB SCH (14:32)
[2020-02-12] MEDS: dexAMETHasone 10mg/ml Inj IV SCH (14:33)
--- NOTE | 2020-02-12 15:37 | NUR ---
NURSE NOTES: IV line found on bed detached from patient, blood on sheets and floor. Reinserted to right forearm g22, infusing well.
[2020-02-12 15:42] VITALS: BP 110/68
--- NOTE | 2020-02-12 16:43 | NUR ---
NURSE NOTES: Bilateral soft wrist restraints placed as ordered.
[2020-02-12] MEDS ORDERED: Haloperidol 5mg/ml Inj IM PRN (16:45)
--- NOTE | 2020-02-12 18:44 | NUR ---
NURSE HAND-OFF REPORT: Important Events on Shift:bilateral soft wrist restraints initiated; had an episode of fever but refused taking medication and would spit medication. Cooling measures done. Patient Status: confused Diet: reg pureed moist NTL Pending Orders: Abd US, carotid vertebral duplex scan Pending Results/Labs: Pending MD notification: Latest Vital Signs: Temperature 99.6 , Pulse 75 , B/P 110 /68 , Respiratory Rate 20 , O2 SAT 92 , Room Air, O2 Flow Rate . Vital Sign Comment: EKG Rhythm: Sinus Rhythm Rhythm change?: N MD Notified?: - MD Response: Latest Arroyo Fall Score: 60 Fall Risk: High Risk Safety Measures: Call light Within Reach, Bed Alarm Zone 2, Side Rails Side Rails x2, Bed position Low and Locked. Fall Precautions: Yellow Socks Patient Fall Education . Addendum: 02/12/20 at 1945 by Nia Conn RN HAND-OFF: Report given to Samantha MYRICK/Don MYRICK.
--- NOTE | 2020-02-12 18:45 | NUR ---
NURSE NOTES: Received pt asleep; comfortable in bed; with bilateral soft wrist restraints; skin and circulation intact; will monitor temperature throughout shift d/t episode of fever in AM shift; call light within reach; side rails x 3; bed locked and in low position; bed alarm in place; will continue to monitor.
[2020-02-12] MEDS ORDERED: ACETAMINOPHEN500 M3 ORAL (19:34)
[2020-02-12 20:00] VITALS: BP 121/71
--- NOTE | 2020-02-12 20:09 | Cardiac Electrophysiology PN ---
Assessment/Plan Assessment/Plan 1. Syncopal episode. The etiology is not clear at this time. Ruled out for IA EF 55%. No CP 2. History of hypertension. Blood pressure currently is stable, off antihypertensive agents. 3. History of psychosis and dementia.In restraints now. FU DR Yadav 4. Thrombocytopenia. Further evaluation by Dr. Porter. 5. Mild renal failure, creatinine of 1.4. 6. Fever and Covid PNA DW RN Subjective Subjective In Covid isolation. Febrile. No CP or SOB.Pulled out his IV and now in restraints. Psych eval by Dr Yadav Head CT was negative Objective Last 24 Hour Vital Signs Date Time Temp Pulse Resp B/P (MAP) Pulse Ox O2 Delivery O2 Flow Rate FiO2 02/12/20 16:00 75 02/12/20 15:42 99.6 84 20 110/68 (82) 92 02/12/20 13:42 99.6 02/12/20 12:00 100.8 76 20 105/80 (88) 93 02/12/20 12:00 72 02/12/20 09:00 Room Air 02/12/20 08:00 99.9 80 20 113/65 (81) 96 02/12/20 08:00 75 02/12/20 04:00 97.9 80 20 104/55 (71) 95 02/12/20 04:00 75 02/12/20 00:00 77 02/12/20 00:00 98.1 85 20 133/79 (97) 94 02/11/20 21:00 Room Air Intake and Output 02/11/20 02/12/20 19:00 07:00 Intake Total 240 ml Output Total 300 ml Balance -60 ml Intake Oral 240 ml Output Urine Total 300 ml # Voids 1 # Bowel Movements 1 Laboratory Tests Test 02/12/20 03:30 02/12/20 10:00 White Blood Count 3.7 K/UL (4.8-10.8) L Red Blood Count 4.71 M/UL (4.70-6.10) Hemoglobin 15.3 G/DL (14.2-18.0) Hematocrit 42.7 % (42.0-52.0) Mean Corpuscular Volume 91 FL (80-99) Mean Corpuscular Hemoglobin 32.4 PG (27.0-31.0) H Mean Corpuscular Hemoglobin Concent 35.7 G/DL (32.0-36.0) Red Cell Distribution Width 12.3 % (11.6-14.8) Platelet Count 78 K/UL (150-450) L Mean Platelet Volume 11.9 FL (6.5-10.1) H Neutrophils (%) (Auto) % (45.0-75.0) Lymphocytes (%) (Auto) % (20.0-45.0) Monocytes (%) (Auto) % (1.0-10.0) Eosinophils (%) (Auto) % (0.0-3.0) Basophils (%) (Auto) % (0.0-2.0) Differential Total Cells Counted 100 Neutrophils % (Manual) 74 % (45-75) Lymphocytes % (Manual) 18 % (20-45) L Monocytes % (Manual) 8 % (1-10) Eosinophils % (Manual) 0 % (0-3) Basophils % (Manual) 0 % (0-2) Band Neutrophils 0 % (0-8) Platelet Estimate Decreased L Platelet Morphology Giant Platelets Occasional Red Blood Cell Morphology Normal Sodium Level 133 MMOL/L (136-145) L Potassium Level 4.4 MMOL/L (3.5-5.1) Chloride Level 101 MMOL/L (98-107) Carbon Dioxide Level 24 MMOL/L (21-32) Anion Gap 8 mmol/L (5-15) Blood Urea Nitrogen 19 mg/dL (7-18) H Creatinine 1.1 MG/DL (0.55-1.30) Estimat Glomerular Filtration Rate > 60 mL/min (>60) Glucose Level 104 MG/DL (74-106) Calcium Level 8.2 MG/DL (8.5-10.1) L HIV (1&2) Antibody Rapid Negative (NEGATIVE) Hepatitis A IgM Antibody Pending Hepatitis B Surface Antigen Pending Hepatitis B Core IgM Antibody Pending Hepatitis C Antibody Pending Microbiology Date/Time Source Procedure Growth Status 02/10/20 12:58 Rectum VRE Culture - Final NO VANCOMYCIN RESISTANT ENTEROCOCCUS ... Complete 02/10/20 12:58 Nasal Nares MRSA Culture - Final NO METHICILLIN RESISTANT STAPH AUREUS... Complete 02/10/20 09:40 Urine,Clean Catch Urine Culture - Preliminary NO GROWTH AFTER 24 HOURS Resulted 02/10/20 09:30 Nasopharynx Coronavirus COVID-19 PCR ([facility]) - Final Complete Objective HEAD AND NECK: No JVD. LUNGS: Coarse rhonchi. CARDIOVASCULAR: Regular S1 and S2 with no gallop or murmur. ABDOMEN: Soft. EXTREMITIES: No pitting edema. Mathew Piedra MD Feb 12, 2020 20:09
--- NOTE | 2020-02-12 21:27 | General Progress Note ---
Subjective ROS Limited/Unobtainable: Yes Allergies: Coded Allergies: No Known Allergies (Unverified , 09/28/19) Objective Last 24 Hour Vital Signs Date Time Temp Pulse Resp B/P (MAP) Pulse Ox O2 Delivery O2 Flow Rate FiO2 02/12/20 16:00 75 02/12/20 15:42 99.6 84 20 110/68 (82) 92 02/12/20 13:42 99.6 02/12/20 12:00 100.8 76 20 105/80 (88) 93 02/12/20 12:00 72 02/12/20 09:00 Room Air 02/12/20 08:00 99.9 80 20 113/65 (81) 96 02/12/20 08:00 75 02/12/20 04:00 97.9 80 20 104/55 (71) 95 02/12/20 04:00 75 02/12/20 00:00 77 02/12/20 00:00 98.1 85 20 133/79 (97) 94 Intake and Output 02/11/20 02/12/20 19:00 07:00 Intake Total 240 ml Output Total 300 ml Balance -60 ml Intake Oral 240 ml Output Urine Total 300 ml # Voids 1 # Bowel Movements 1 Laboratory Tests 02/12/20 03:30: White Blood Count 3.7L, Red Blood Count 4.71, Hemoglobin 15.3, Hematocrit 42.7, Mean Corpuscular Volume 91, Mean Corpuscular Hemoglobin 32.4H, Mean Corpuscular Hemoglobin Concent 35.7, Red Cell Distribution Width 12.3, Platelet Count 78L, Mean Platelet Volume 11.9H, Neutrophils (%) (Auto) , Lymphocytes (%) (Auto) , Monocytes (%) (Auto) , Eosinophils (%) (Auto) , Basophils (%) (Auto) , Differential Total Cells Counted 100, Neutrophils % (Manual) 74, Lymphocytes % (Manual) 18L, Monocytes % (Manual) 8, Eosinophils % (Manual) 0, Basophils % (Manual) 0, Band Neutrophils 0, Platelet Estimate DecreasedL, Platelet Morphology , Giant Platelets Occasional, Red Blood Cell Morphology Normal, Sodium Level 133L, Potassium Level 4.4, Chloride Level 101, Carbon Dioxide Level 24, Anion Gap 8, Blood Urea Nitrogen 19H, Creatinine 1.1, Estimat Glomerular Filtration Rate > 60, Glucose Level 104, Calcium Level 8.2L, HIV (1&2) Antibody Rapid Negative 02/12/20 10:00: Hepatitis A IgM Antibody [Pending], Hepatitis B Surface Antigen [Pending], Hepatitis B Core IgM Antibody [Pending], Hepatitis C Antibody [Pending] Height (Feet): 6 Height (Inches): 0.00 Weight (Pounds): 170 Assessment/Plan Problem List: (1) Encephalopathy ICD Codes: G93.40 - Encephalopathy, unspecified SNOMED: 16593095 (2) UTI (urinary tract infection) ICD Codes: N39.0 - Urinary tract infection, site not specified SNOMED: 68893044 Qualifiers: Qualified Codes: N39.0 - Urinary tract infection, site not specified (3) TRAY (acute kidney injury) ICD Codes: N17.9 - Acute kidney failure, unspecified SNOMED: 56266809, 3640773 (4) Syncope ICD Codes: R55 - Syncope and collapse SNOMED: 272462043 Qualifiers: Qualified Codes: R55 - Syncope and collapse (5) Psychotic disorder ICD Codes: F29 - Unspecified psychosis not due to a substance or known physiological condition SNOMED: 24221373 Status: progressing Assessment/Plan: afebrile no change confused no arrythmia uti syncope Joana Dubois MD Feb 12, 2020 21:27
[2020-02-13] VITALS: BP 99/68
--- NOTE | 2020-02-13 01:06 | NUR ---
NURSE NOTES: Left message to Dr. Piedra regarding pt with sinus leesa episodes on 02/12/20 around 2018 @ 55 bpm and 2330 @ 48 bpm ; pt with sinus leesa episode in ED according to Dr. Piedra's and ED notes @ 57 bpm; pt stable at this time, asymptomatic, mental status within baseline, confused; BP= 99/68 around 0000 today; peripheral radial pulses palpable on both wrists with bilateral soft wrists restraints; pt noted laying comfortable in bed, awake. Awaiting MD response; will continue to monitor.
[2020-02-13 04:00] VITALS: BP 100/64
--- NOTE | 2020-02-13 05:00 | NUR ---
NURSE NOTES: Pt refused blood draw multiple times despite explaining to him importance; confused state; yelling and screaming despite having bilateral soft wrist restraints; spoke to Pablo from lab to perform blood draw; will endorse to incoming shift.
--- NOTE | 2020-02-13 07:30 | NUR ---
NURSE HAND-OFF REPORT: Important Events on Shift: On bilateral soft wrist restraints; skin and circulation intact; with disruptive behavior yelling and screaming; with episodes of refusing care and being uncooperative despite explaining procedure importance; refused blood draw; Pablo from lab aware to draw blood specimen Patient Status: confused, AOX1-2 Diet: Regular, pureed moist, thickened liquids Pending Orders: Chest xray today Pending Results/Labs: morning labs Pending MD notification:N Latest Vital Signs: Temperature 97.9 , Pulse 60 , B/P 100 /64 , Respiratory Rate 20 , O2 SAT 92 , Room Air, O2 Flow Rate . Vital Sign Comment: stable EKG Rhythm: Sinus Bradycardia Rhythm change?: N MD Notified?: Y -Dr. Dorothea MOTT Response: Message left await call Latest Arroyo Fall Score: 60 Fall Risk: High Risk Safety Measures: Call light Within Reach, Bed Alarm Zone 2, Side Rails Side Rails x3, Bed position Low and Locked. Fall Precautions: Yellow Socks Patient Fall Education Report given to ELEN Palacio.
[2020-02-13 08:00] VITALS: BP 106/76
--- NOTE | 2020-02-13 08:12 | NUR ---
CASE MANAGEMENT:REVIEW 02/13/20 SI: SYNCOPE. ENCEPHALOPATHY. UTI COVID PNA 99.0 48 20 99/68 95% ON RA IS: IV DECADRON Q24 IV ROCEPHIN Q24 : TELEMETRY STATUS DCP: FROM [facility] [place] [facility]: MONITOR HR AND BP
--- NOTE | 2020-02-13 08:54 | Cardiac Electrophysiology PN ---
Assessment/Plan Assessment/Plan 1. Syncopal episode. The etiology is not clear at this time. Ruled out for [place] EF 55%. No CP. HR mostly in 50s but drops to 40s at times. Keep off any BANGURA or AVN kenyetta 2. History of hypertension. Currently is stable, off antihypertensive agents. 3. History of psychosis and dementia. In restraints by DR Yadav 4. Thrombocytopenia. Further evaluation by Dr. Porter. 5. Mild renal failure, creatinine of 1.4. 6. Fever and Covid PNA DW RN Subjective Subjective In Covid isolation since 02/09. Febrile. Confused in restraints. Psych FU by Dr Yadav Head CT was negative. HR mostly in 50s but at times drops to high 40s Objective Last 24 Hour Vital Signs Date Time Temp Pulse Resp B/P (MAP) Pulse Ox O2 Delivery O2 Flow Rate FiO2 02/13/20 04:00 52 02/13/20 04:00 97.9 60 20 100/64 (76) 92 02/13/20 00:00 99.0 58 20 99/68 (78) 95 02/13/20 00:00 48 02/12/20 21:00 Room Air 02/12/20 20:00 99.0 76 20 121/71 (88) 95 02/12/20 20:00 55 02/12/20 16:00 75 02/12/20 15:42 99.6 84 20 110/68 (82) 92 02/12/20 13:42 99.6 02/12/20 12:00 100.8 76 20 105/80 (88) 93 02/12/20 12:00 72 02/12/20 09:00 Room Air Intake and Output 02/12/20 02/13/20 19:00 07:00 Intake Total 390 ml Output Total 300 ml Balance 90 ml Intake Oral 390 ml Output Urine Total 300 ml # Voids 2 2 # Bowel Movements 1 1 Laboratory Tests Test 02/12/20 10:00 Hepatitis A IgM Antibody Pending Hepatitis B Surface Antigen Pending Hepatitis B Core IgM Antibody Pending Hepatitis C Antibody Pending Microbiology Date/Time Source Procedure Growth Status 02/10/20 12:58 Rectum - Final NO CARBAPENEM-RESISTANT ENTEROBACTERI... Complete 02/10/20 12:58 Rectum VRE Culture - Final NO VANCOMYCIN RESISTANT ENTEROCOCCUS ... Complete 02/10/20 12:58 Nasal Nares MRSA Culture - Final NO METHICILLIN RESISTANT STAPH AUREUS... Complete 02/10/20 09:40 Urine,Clean Catch Urine Culture - Final NO GROWTH AFTER 48 HOURS Complete 02/10/20 09:30 Nasopharynx Coronavirus COVID-19 PCR (JENNIFER) - Final Complete Objective HEAD AND NECK: No JVD. LUNGS: Coarse rhonchi. CARDIOVASCULAR: Regular S1 and S2 with no gallop or murmur. ABDOMEN: Soft. EXTREMITIES: No pitting edema. Mathew Piedra MD Feb 13, 2020 08:54
--- NOTE | 2020-02-13 09:21 | NUR ---
RADIOLOGY NOTE: PORTABLE CHEST-XRAY COMPLETED AT 0821 HRS. FA
[2020-02-13] MEDS: dexAMETHasone 10mg/ml Inj IV SCH (09:37)
--- NOTE | 2020-02-13 10:08 | Diagnostic Imaging Report ---
Procedure: XRAY Chest 1v Reason for study: Shortness of breath Comparison films: 02/10/2020. FINDINGS: Radiograph is underpenetrated. Vascularity is normal. Mild hazy infiltrate noted right midlung although this may be exaggerated by underpenetrated technique. Cardiac and mediastinal silhouette are within normal limits. CP angles are sharp. The bony thorax appear unremarkable. IMPRESSION: Possible mild hazy infiltrate right midlung.
--- NOTE | 2020-02-13 11:39 | Infectious Diseases Prog Note ---
Assessment/Plan Assessment/Plan IMPRESSION: 1. COVID-19 disease. 2. Hypoxemia, mild 3. COPD. 4. Syncopal episode. 5. Leukopenia and thrombocytopenia with lymphopenia RECOMMENDATION: Continue ceftriaxone & Dexamethasone. Subjective ROS Limited/Unobtainable: Yes Constitutional: Denies: fever Neurologic: Reports: confusion, other - on restraint Allergies: Coded Allergies: No Known Allergies (Unverified , 09/28/19) Objective Last 24 Hour Vital Signs Date Time Temp Pulse Resp B/P (MAP) Pulse Ox O2 Delivery O2 Flow Rate FiO2 02/13/20 09:00 Room Air 02/13/20 08:00 54 02/13/20 08:00 98.9 60 19 106/76 (86) 94 02/13/20 04:00 52 02/13/20 04:00 97.9 60 20 100/64 (76) 92 02/13/20 00:00 99.0 58 20 99/68 (78) 95 02/13/20 00:00 48 02/12/20 21:00 Room Air 02/12/20 20:00 99.0 76 20 121/71 (88) 95 02/12/20 20:00 55 02/12/20 16:00 75 02/12/20 15:42 99.6 84 20 110/68 (82) 92 02/12/20 13:42 99.6 02/12/20 12:00 100.8 76 20 105/80 (88) 93 02/12/20 12:00 72 Height (Feet): 6 Height (Inches): 0.00 Weight (Pounds): 170 HEENT: mucous membranes moist Respiratory/Chest: lungs clear Cardiovascular: bradycardia Abdomen: soft, non tender Extremities: no edema Neurologic/Psychiatric: alert Microbiology Date/Time Source Procedure Growth Status 02/10/20 12:58 Rectum - Final NO CARBAPENEM-RESISTANT ENTEROBACTERI... Complete 02/10/20 12:58 Rectum VRE Culture - Final NO VANCOMYCIN RESISTANT ENTEROCOCCUS ... Complete 02/10/20 12:58 Nasal Nares MRSA Culture - Final NO METHICILLIN RESISTANT STAPH AUREUS... Complete Current Medications Medications (Trade) Dose Ordered Sig/Keenan Route PRN Reason Start Time Stop Time Status Last Admin Dose Admin Acetaminophen (Tylenol) 500 mg Q4H PRN ORAL Temp >100.5 02/11/20 01:45 03/12/20 01:44 02/11/20 16:33 Acetaminophen (Tylenol) 500 mg Q6H PRN ORAL Mild Pain (Pain Scale 1-3) 02/10/20 14:30 03/11/20 14:29 02/12/20 13:12 Barium Sulfate (Varibar Honey) 250 ml NOW PRN MC RAD 02/10/20 15:00 02/13/20 14:59 Barium Sulfate (Varibar [place]) 240 ml NOW PRN MC RAD 02/10/20 15:00 02/13/20 14:59 Barium Sulfate (Varibar Pudding) 230 ml NOW PRN MC RAD 02/10/20 15:00 02/13/20 14:59 Barium Sulfate (Varibar Thin Liquid powder) 148 gm NOW PRN MC RAD 02/10/20 15:00 02/13/20 14:59 Ceftriaxone Sodium 1 gm/ Dextrose 55 ml @ 110 mls/hr Q24H IVPB 02/12/20 13:30 02/19/20 13:29 02/12/20 14:32 Dexamethasone Sodium Phosphate (Decadron 10mg/ ml Inj) 6 mg DAILY IV 02/12/20 13:45 02/21/20 09:01 02/13/20 09:37 Haloperidol Lactate (Haldol) 5 mg Q6H PRN IM Agitation 02/12/20 16:45 03/28/20 16:44 Amador Gallo MD Feb 13, 2020 11:39
[2020-02-13 12:00] VITALS: BP 110/79
[2020-02-13] MEDS: cefTRIAXone 1 GM in D5W 55 ML IVPB SCH (13:52)
[2020-02-13 16:00] VITALS: BP 109/71
--- NOTE | 2020-02-13 18:07 | NUR ---
Speech pathology Note (Bedside Dysphagia Evaluation) Resident: [facility] diet: regular diet Brief Note: Mr. Perez is a 79 year old male presents with syncopal episode. pt was subsequently admitted for COVID 19 on 02/10/2020. PMH: COPD, Psych, dementia, encephalopathy. Last 24 hours vital signs: Temp: 97.6~99.0, Pulse 48~76, BP: 99/68~110/79, SPo2 92~98 ORA Recent Labs: WBC 3.7, H/H 15.3/42.7 Platelet 78, Na 133, K 4.4, CL 101, CO2 24, BUN 19, Creatine 1.1, Glcusoe 104 Findings: Mr. Perez is alert watching TV. He was poorly cooperative wit psychiatric component. His speech is ataxic. Voice is intact with ataxic. He refused oral exam or PO trial by stating " you can have it." I did not push too much, likely that will trigger his agitation. I do not observe dyspnea or secretion at laryngeal level. Interpretation: 1. Probable functional baseline swallow function 2. Agitation Plan: 1. Continue with current Po diet and advance as tolerate SECURITY RESEARCHER follow up for clinical observation Davida Lopez
--- NOTE | 2020-02-13 19:35 | NUR ---
NURSE HAND-OFF REPORT: Important Events on Shift: For abdominal ulrasound ramsey, NPO p midnight Patient Status: Stable Diet: Regular pureed moist Pending Orders: N Pending Results/Labs:N Pending notification:N Latest Vital Signs: Temperature 97.6 , Pulse 53 , B/P 109 /71 , Respiratory Rate 18 , O2 SAT 98 , Room Air, O2 Flow Rate . Vital Sign Comment: EKG Rhythm: Sinus Rhythm Rhythm change?: N MD Notified?: Bryan Piedra MD Response: Message left await call Latest Arroyo Fall Score: 60 Fall Risk: High Risk Safety Measures: Call light Within Reach, Bed Alarm Zone 2, Side Rails Side Rails x3, Bed position Low and Locked. Fall Precautions: Yellow Socks Patient Fall Education Report given to Linda MYRICK. Addendum: 02/13/20 at 1936 by Jonna Mccurdy RN Also for carotid duplex scan
--- NOTE | 2020-02-13 19:50 | NUR ---
NURSE NOTES: Received pt from ELEN Nj. Pt awake, alert, and talkative. Bed in lowest position. Call light within reach. Bilateral wrist restraints in place. Pt resting comfortably in bed. Will continue to monitor.
[2020-02-13 20:00] VITALS: BP 117/83
--- NOTE | 2020-02-13 21:04 | General Progress Note ---
Subjective ROS Limited/Unobtainable: Yes Allergies: Coded Allergies: No Known Allergies (Unverified , 09/28/19) Objective Last 24 Hour Vital Signs Date Time Temp Pulse Resp B/P (MAP) Pulse Ox O2 Delivery O2 Flow Rate FiO2 02/13/20 16:00 97.6 76 18 109/71 (84) 98 02/13/20 16:00 53 02/13/20 12:00 98.8 79 18 110/79 (89) 96 02/13/20 12:00 55 02/13/20 09:00 Room Air 02/13/20 08:00 54 02/13/20 08:00 98.9 60 19 106/76 (86) 94 02/13/20 04:00 52 02/13/20 04:00 97.9 60 20 100/64 (76) 92 02/13/20 00:00 99.0 58 20 99/68 (78) 95 02/13/20 00:00 48 Intake and Output 02/12/20 02/13/20 19:00 07:00 Intake Total 390 ml Output Total 300 ml Balance 90 ml Intake Oral 390 ml Output Urine Total 300 ml # Voids 2 2 # Bowel Movements 1 1 Height (Feet): 6 Height (Inches): 0.00 Weight (Pounds): 170 Assessment/Plan Problem List: (1) Encephalopathy ICD Codes: G93.40 - Encephalopathy, unspecified SNOMED: 87801655 (2) UTI (urinary tract infection) ICD Codes: N39.0 - Urinary tract infection, site not specified SNOMED: 32939032 Qualifiers: Qualified Codes: N39.0 - Urinary tract infection, site not specified (3) TRAY (acute kidney injury) ICD Codes: N17.9 - Acute kidney failure, unspecified SNOMED: 77159813, 4145590 (4) Syncope ICD Codes: R55 - Syncope and collapse SNOMED: 536322421 Qualifiers: Qualified Codes: R55 - Syncope and collapse (5) Psychotic disorder ICD Codes: F29 - Unspecified psychosis not due to a substance or known physiological condition SNOMED: 92604685 Status: progressing Assessment/Plan: afebrile covid positive pna prn supportive care no arrythmia uti Joana Dubois MD Feb 13, 2020 21:04
[2020-02-14] VITALS: BP 125/79
[2020-02-14 04:00] VITALS: BP 105/70
[2020-02-14] MEDS: Acetaminophen 500mg (ES) tab ORAL PRN (06:31)
--- NOTE | 2020-02-14 06:39 | NUR ---
NURSE NOTES: pt refused to finish tylenol dose after being educated on the need to bring his fever down. Will continue to monitor
--- NOTE | 2020-02-14 07:31 | NUR ---
NURSE NOTES: Received report from Linda/ELEN. Pt in bed, sleeping, in semi-fowlers position. On room air, no distress or SOB noted. Pt is on retrains, will monitor Q2hrs. IV on right FA, 24G, SL, patent and clean. Pt refused his medications during the night. Bed in the lowest position and locked, call light within reach. Side rails up X3. Will continue plan of care.
--- NOTE | 2020-02-14 07:40 | NUR ---
NURSE HAND-OFF REPORT: Important Events on Shift: pt refused to finish tylenol for fever Patient Status: stable Diet: npo for abd us Pending Orders: y Pending Results/Labs:y Pending notification:y Latest Vital Signs: Temperature 101.4 , Pulse 81 , B/P 105 /70 , Respiratory Rate 20 , O2 SAT 94 , Room Air, O2 Flow Rate . Vital Sign Comment: EKG Rhythm: Sinus Rhythm Rhythm change?: N MD Notified?: Y -Dr. Dorothea MOTT Response: Message left await call Latest Arroyo Fall Score: 60 Fall Risk: High Risk Safety Measures: Call light Within Reach, Bed Alarm Zone 2, Side Rails Side Rails x3, Bed position Low and Locked. Fall Precautions: Yellow Socks Patient Fall Education Report given to ELEN Knight.
[2020-02-14 08:00] VITALS: BP 120/75
[2020-02-14] MEDS: dexAMETHasone 10mg/ml Inj IV SCH (08:36)
--- NOTE | 2020-02-14 11:16 | NUR ---
NURSE NOTES: Patient's restrains were discontinued, he is being calm and cooperative at this moment.
--- NOTE | 2020-02-14 11:16 | NUR ---
Speech Note (Dysphagia Rx) S: Watching Television, Trump's speech. Pt appeared to be Trump fan by stating " Isn't he great.." pt is much calm compared to last night. O: 1. PO trial with water, ice, and jello: He was very impulsive. I gave him a cup of iced water. He drunk about 120cc without dysphagia or any s.s of aspiration. He tolerated jello without dysphagia A: 1. Functional swallow P; 1. Mechanical soft diet and thin liquid. -he was solid diet at [facility] I will sign off from service at this time. Davida Lopez
--- NOTE | 2020-02-14 11:49 | Cardiac Electrophysiology PN ---
Assessment/Plan Assessment/Plan 1. Syncopal episode. The etiology is not clear at this time. Ruled out for [place] EF 55%. No CP. HR mostly in 50s but drops to 40s at times. Keep off any BANGURA or AVN kenyetta 2. History of hypertension. Currently is stable, off antihypertensive agents. 3. History of psychosis and dementia. In restraints by DR Yadav 4. Thrombocytopenia. Further evaluation by Dr. Porter. 5. Mild renal failure, creatinine of 1.4. 6. Fever and Covid PNA off Oxygen DW RN Subjective Subjective In Covid isolation since 02/09. Febrile. Confused in restraints as was gonna take out his IV. On Room Air Head CT was negative. HR mostly in 50s but at times drops to high 40s NPO for Abd US Objective Last 24 Hour Vital Signs Date Time Temp Pulse Resp B/P (MAP) Pulse Ox O2 Delivery O2 Flow Rate FiO2 02/14/20 09:00 Room Air 02/14/20 08:00 97.8 89 22 120/75 (90) 92 02/14/20 08:00 87 02/14/20 07:01 101.4 02/14/20 04:00 69 02/14/20 04:00 101.4 81 20 105/70 (82) 94 02/14/20 00:00 98.5 88 24 125/79 (94) 94 02/14/20 00:00 55 02/13/20 21:00 Room Air 02/13/20 20:00 53 02/13/20 20:00 97.0 70 24 117/83 (94) 96 02/13/20 16:00 97.6 76 18 109/71 (84) 98 02/13/20 16:00 53 02/13/20 12:00 98.8 79 18 110/79 (89) 96 02/13/20 12:00 55 Intake and Output 02/13/20 02/14/20 18:59 06:59 # Voids 2 2 Objective HEAD AND NECK: No JVD. LUNGS: Coarse rhonchi. CARDIOVASCULAR: Regular S1 and S2 with no gallop or murmur. ABDOMEN: Soft. EXTREMITIES: No pitting edema. Mathew Piedra MD Feb 14, 2020 11:49
[2020-02-14 12:00] VITALS: BP 136/72
[2020-02-14] MEDS: cefTRIAXone 1 GM in D5W 55 ML IVPB SCH (13:08)
--- NOTE | 2020-02-14 13:53 | Infectious Diseases Prog Note ---
Assessment/Plan Assessment/Plan IMPRESSION: 1. COVID-19 disease. 2. Hypoxemia, mild 3. COPD. 4. Syncopal episode. 5. Leukopenia and thrombocytopenia with lymphopenia RECOMMENDATION: Continue ceftriaxone & Dexamethasone. Subjective ROS Limited/Unobtainable: Yes Constitutional: Reports: fever, other - T=101.4 Allergies: Coded Allergies: No Known Allergies (Unverified , 09/28/19) Objective Last 24 Hour Vital Signs Date Time Temp Pulse Resp B/P (MAP) Pulse Ox O2 Delivery O2 Flow Rate FiO2 02/14/20 12:00 99.2 97 22 136/72 (93) 92 02/14/20 12:00 94 02/14/20 09:00 Room Air 02/14/20 08:00 97.8 89 22 120/75 (90) 92 02/14/20 08:00 87 02/14/20 07:01 101.4 02/14/20 04:00 69 02/14/20 04:00 101.4 81 20 105/70 (82) 94 02/14/20 00:00 98.5 88 24 125/79 (94) 94 02/14/20 00:00 55 02/13/20 21:00 Room Air 02/13/20 20:00 53 02/13/20 20:00 97.0 70 24 117/83 (94) 96 02/13/20 16:00 97.6 76 18 109/71 (84) 98 02/13/20 16:00 53 Height (Feet): 6 Height (Inches): 0.00 Weight (Pounds): 170 HEENT: mucous membranes moist Respiratory/Chest: other - on room air oxygen Cardiovascular: normal rate Abdomen: soft, non tender Extremities: no edema Neurologic/Psychiatric: alert, responsive Current Medications Medications (Trade) Dose Ordered Sig/Keenan Route PRN Reason Start Time Stop Time Status Last Admin Dose Admin Acetaminophen (Tylenol) 500 mg Q4H PRN ORAL Temp >100.5 02/11/20 01:45 03/12/20 01:44 02/14/20 06:31 Acetaminophen (Tylenol) 500 mg Q6H PRN ORAL Mild Pain (Pain Scale 1-3) 02/10/20 14:30 03/11/20 14:29 02/12/20 13:12 Ceftriaxone Sodium 1 gm/ Dextrose 55 ml @ 110 mls/hr Q24H IVPB 02/12/20 13:30 02/19/20 13:29 02/14/20 13:08 Dexamethasone Sodium Phosphate (Decadron 10mg/ ml Inj) 6 mg DAILY IV 02/12/20 13:45 02/21/20 09:01 02/14/20 08:36 Haloperidol Lactate (Haldol) 5 mg Q6H PRN IM Agitation 02/12/20 16:45 03/28/20 16:44 Amador Gallo MD Feb 14, 2020 13:53
--- NOTE | 2020-02-14 15:05 | Consultation ---
Consult Note Consult Note I am asked to evaluate the patient at the request of Dr. Wilson for fluid and electrolyte management Day 4 of hospitalization for this patient Patient seen and examined, data reviewed 79-year-old male presents with syncopal episode. [facility] Appears somewhat confused. No reported fall or head injury. No signs of distress on arrival. Patient nonverbal at baseline. No other aggravating relieving factors. Denies any other associated symptoms Allergies: No Known Allergies (Unverified , 09/28/19) COVID-19 Screening Contact w/high risk pt: No Experienced COVID-19 symptoms?: No COVID-19 Testing performed LARYNGOLOGIST: Yes COVID-19 Screening: Negative COVID-19 COVID-19 Testing Source: nasal Past Medical History: COPD, dementia, other - encephalopathy Past Surgical History: none Pertinent Family History: none Social History: Denies: smoking, alcohol use, drug use Immunizations: UTD Reviewed Nursing Documentation: PMH: Agreed; PSxH: Agreed Past Medical History: No History, Except For Hx COPD: Yes Hx Neurological Problems: Yes - Encephalopathy, Psychosis Hx Dementia: Yes Hx Alzheimer's Disease: Yes Vital Signs Date Time Temp Pulse Resp B/P (MAP) Pulse Ox O2 Delivery O2 Flow Rate FiO2 02/10/20 08:15 97.7 57 16 112/67 (82) 98 Room Air PHYSICAL EXAMINATION: VITAL SIGNS: Temperature 100.8, pulse 76, blood pressure 105/80, oxygen saturation on room air 91%. GENERAL APPEARANCE: Seems to have normal weight. HEAD AND NECK: [place] conjunctiva. HEART: Normal rate. LUNGS: Few rhonchi. ABDOMEN: Soft. EXTREMITIES: No edema. NEUROLOGIC: Awake, alert, verbal. LABORATORY AND DIAGNOSTIC DATA: COVID-19 positive. Urine culture negative. MRSA screen negative. VRE screen negative. WBC 3.1, hemoglobin 15.3, hematocrit 42.7, and platelets is 78. Sodium 133, potassium 4.4, chloride 101, bicarb 24, BUN 19, creatinine 1.1, glucose 104. Hepatitis serologies negative. HIV test negative. Chest x-ray, bilateral interstitial disease, likely chronic. Head CT, no acute intracranial abnormality. Echocardiogram showed ejection fraction of 55%. . Assessment/Plan Patient presented with serum creatinine of 1.4 however serum creatinine now within normal limits Hyponatremia 4+ proteinuria Syncopal episode History of hypertension History of psychosis and dementia COVID-19 disease, COPD, hypoxia Leukopenia thrombocytopenia and lymphopenia Suggestions: Urine for osmolality and spot sodium Serum uric acid serum osmolality TSH lipid panel Further comments after above results Med list reviewed Per consultants Per orders Praful Walker MD Feb 14, 2020 15:05
[2020-02-14 16:00] VITALS: BP 109/74
--- NOTE | 2020-02-14 19:33 | NUR ---
NURSE HAND-OFF REPORT: Important Events on Shift: Patient Status: Stable Diet: Regular mechanical soft, thin liquids Pending Orders: Pending Results/Labs: Pending MD notification: Latest Vital Signs: Temperature 98.6 , Pulse 83 , B/P 109 /74 , Respiratory Rate 20 , O2 SAT 92 , Room Air, O2 Flow Rate . Vital Sign Comment: Stable EKG Rhythm: Sinus Rhythm Rhythm change?: N MD Notified?: Bryan Piedra MD Response: Message left await call Latest Arroyo Fall Score: 60 Fall Risk: High Risk Safety Measures: Call light Within Reach, Bed Alarm Zone 2, Side Rails Side Rails x3, Bed position Low and Locked. Fall Precautions: Yellow Socks Patient Fall Education Report given to Linda/RN.
--- NOTE | 2020-02-14 19:50 | NUR ---
NURSE NOTES: Received pt from ELEN Knight. Pt awake, alert, and talkative. Bed in lowest position. Call light within reach. Will continue to monitor.
[2020-02-14 20:00] VITALS: BP 111/73
--- NOTE | 2020-02-14 20:43 | General Progress Note ---
Subjective ROS Limited/Unobtainable: Yes Allergies: Coded Allergies: No Known Allergies (Unverified , 09/28/19) Objective Last 24 Hour Vital Signs Date Time Temp Pulse Resp B/P (MAP) Pulse Ox O2 Delivery O2 Flow Rate FiO2 02/14/20 16:00 98.6 83 20 109/74 (86) 92 02/14/20 16:00 83 02/14/20 12:00 99.2 97 22 136/72 (93) 92 02/14/20 12:00 94 02/14/20 09:00 Room Air 02/14/20 08:00 97.8 89 22 120/75 (90) 92 02/14/20 08:00 87 02/14/20 07:01 101.4 02/14/20 04:00 69 02/14/20 04:00 101.4 81 20 105/70 (82) 94 02/14/20 00:00 98.5 88 24 125/79 (94) 94 02/14/20 00:00 55 02/13/20 21:00 Room Air Intake and Output 02/13/20 02/14/20 19:00 07:00 # Voids 2 2 Height (Feet): 6 Height (Inches): 0.00 Weight (Pounds): 170 Assessment/Plan Problem List: (1) Encephalopathy ICD Codes: G93.40 - Encephalopathy, unspecified SNOMED: 83353941 (2) UTI (urinary tract infection) ICD Codes: N39.0 - Urinary tract infection, site not specified SNOMED: 58875787 Qualifiers: Qualified Codes: N39.0 - Urinary tract infection, site not specified (3) TRAY (acute kidney injury) ICD Codes: N17.9 - Acute kidney failure, unspecified SNOMED: 22870369, 9699556 (4) Syncope ICD Codes: R55 - Syncope and collapse SNOMED: 853111731 Qualifiers: Qualified Codes: R55 - Syncope and collapse (5) Psychotic disorder ICD Codes: F29 - Unspecified psychosis not due to a substance or known physiological condition SNOMED: 10841450 Status: progressing Assessment/Plan: dehydration prn supportive care dc planning covid positive pna no arrythmia uti improving Joana Dubois MD Feb 14, 2020 20:43
--- NOTE | 2020-02-14 23:59 | NUR ---
HAND-OFF: Report given to ELEN Ramesh. Pt stable.
[2020-02-15] VITALS: BP 119/75
--- NOTE | 2020-02-15 00:55 | NUR ---
NURSE NOTES: Patient received from Linda MYRICK. Alert and oriented x 4. No c/o pain and no s/s of distress. Patient comfortable in bed. Will continue plan of care.
[2020-02-15 04:00] VITALS: BP 108/74
[2020-02-15 06:12] LABS: HEMATOCRIT 42.8 % (42.0-52.0); HEMOGLOBIN 15.2 G/DL (14.2-18.0); MEAN CORPUSCULAR VOLUME 90 FL (80-99); PLATELET COUNT 66 K/UL (150-450); RED BLOOD COUNT 4.74 M/UL (4.70-6.10); RED CELL DISTRIBUTION WIDTH 12.1 % (11.6-14.8); WHITE BLOOD COUNT 4.8 K/UL (4.8-10.8)
--- NOTE | 2020-02-15 06:46 | NUR ---
NURSE HAND-OFF REPORT: Important Events on Shift:[none] Patient Status: [Stable] Diet: [Regular Mech Soft, Thin Liquid] Pending Orders: [Carotid Duplex] Pending Results/Labs:[] Pending MD notification:[] Latest Vital Signs: Temperature 98.4 , Pulse 72 , B/P 108 /74 , Respiratory Rate 22 , O2 SAT 94 , Room Air, O2 Flow Rate . Vital Sign Comment: [] EKG Rhythm: Sinus Rhythm Rhythm change?: N MD Notified?: Bryan Piedra MD Response: Message left await call Latest Ar[place]o Fall Score: 60 Fall Risk: High Risk Safety Measures: Call light Within Reach, Bed Alarm Zone 2, Side Rails Side Rails x3, Bed position Low and Locked. Fall Precautions: Yellow Socks Patient Fall Education Report given to []. Addendum: 02/15/20 at 0703 by Kendall Bueno RN Report given to Chika MYRICK
[2020-02-15 07:34] LABS: ALANINE AMINOTRANSFERASE 38 U/L (12-78); ALBUMIN 2.9 G/DL (3.4-5.0); ALBUMIN/GLOBULIN RATIO 0.8 (1.0-2.7); ALKALINE PHOSPHATASE 57 U/L (46-116); ANION GAP 10 mmol/L (5-15); ASPARTATE AMINO TRANSFERASE 44 U/L (15-37); BILIRUBIN,TOTAL 0.6 MG/DL (0.2-1.0); BLOOD UREA NITROGEN 38 mg/dL (7-18); CALCIUM 7.7 MG/DL (8.5-10.1); CARBON DIOXIDE 23 MMOL/L (21-32); CHLORIDE 101 MMOL/L (98-107); CHOLESTEROL 147 MG/DL (< 200); GAMMA GLUTAMYL TRANSPEPTIDASE 42 U/L (5-85); HDL CHOLESTEROL 35 MG/DL (40-60); PHOSPHORUS 3.3 MG/DL (2.5-4.9); POTASSIUM 4.4 MMOL/L (3.5-5.1); SODIUM 134 MMOL/L (136-145); TRIGLYCERIDES 91 MG/DL (30-150)
--- NOTE | 2020-02-15 07:48 | NUR ---
CASE MANAGEMENT:REVIEW 02/15/20 SI: COVID PNA SYNCOPE. ENCEPHALOPATHY. UTI 98.4 72 22 108/74 94% ON RA PLT-66 BUN+38 CA-7.7 IS: IV DECADRON Q24 IV ROCEPHIN Q24 : TELEMETRY STATUS DCP: FROM [facility] PLAN: MONITOR HR AND BP
--- NOTE | 2020-02-15 07:50 | NUR ---
NURSE NOTES: Report received from Kendall MYRICK. Patient is osberved in bed, awake, alert, oriented but with periods of confusion, and able to make needs known. Respiratory even and unlabored. Denies pain at this time. IV site is asymptomatic, patent, and intact. Bed is in lowest position with side rails upx2 and brakes are engaged. Bed alarm is on. Will continue to monitor.
[2020-02-15 08:00] VITALS: BP 104/60
--- NOTE | 2020-02-15 08:33 | NUR ---
RD ASSESSMENT & RECOMMENDATIONS SEE CARE ACTIVITY FOR COMPLETE ASSESSMENT DAILY ESTIMATED NEEDS: Needs based on pulmonary 76kg 25-30 kcals/kg 8437-6566 total kcals 1-1.5 g protein/kg 76-114 g total protein 25-30 mL/kg 5819-5599 total fluid mLs NUTRITION DIAGNOSIS: Altered nutrition related values related to hyperglycemia as evidenced by elev A1C (6.0), on decadron. (CURRENT DIET: Regular ms chopped) PO DIET RECOMMENDATIONS: With good intake, rec CCHO MED diet/ texture per [facility] AUDIT MANAGER ADDITIONAL RECOMMENDATIONS: 1) Monitor PO intake- need for snacks/ supplements 2) Maintain daily calibrated bed scale wts 3) Bowel regimen, last bm 3 days ago (02/11) 4) rec bed side BG checks w/ niss (A1C 6.0 + pt on decadron)
[2020-02-15] MEDS: dexAMETHasone 10mg/ml Inj IV SCH ×2 (08:43→08:50)
--- NOTE | 2020-02-15 08:50 | NUR ---
NURSE NOTES: Explained to the patient the benefit of decadron, however, patient insists on refusing. Patient is alert oriented x4 and able to make needs known. Increase in agitation noted when re-educating the patient. Will continue to monitor.
[2020-02-15] MEDS ORDERED: Docusate 100mg cap ORAL SCH (09:00)
--- NOTE | 2020-02-15 09:00 | NUR ---
NURSE NOTES: Notified Dr. Dubois regarding non-compliance, per MD, it is known behavior. Dr. Dubois ordered for discharge planning to [place] today. Will notify telehealth case manager.
--- NOTE | 2020-02-15 10:26 | Cardiac Electrophysiology PN ---
Assessment/Plan Assessment/Plan 1. Syncopal episode. The etiology is not clear at this time. Ruled out for PA EF 55%. No CP. HR mostly in 50s but drops to 40s at times. Keep off any BANGURA or AVN kenyetta 2. History of hypertension. Currently is stable, off antihypertensive agents. 3. History of psychosis and dementia. FU DR Yadav 4. Thrombocytopenia. Further evaluation by Dr. Porter. 5. Mild renal failure, creatinine of 1.4. 6. Fever and Covid PNA off Oxygen DW RN DC back to [facility] today Subjective Subjective In Covid isolation since 02/09. Confused. On Room Air Head CT was negative. HR mostly in 50s. DC to SN[facility] pending today. Refusing Meds Objective Last 24 Hour Vital Signs Date Time Temp Pulse Resp B/P (MAP) Pulse Ox O2 Delivery O2 Flow Rate FiO2 02/15/20 09:00 Room Air 02/15/20 08:00 97.7 81 20 104/60 (75) 94 02/15/20 04:00 67 02/15/20 04:00 98.4 72 22 108/74 (85) 94 02/15/20 00:00 97.5 78 24 119/75 (90) 97 02/15/20 00:00 64 02/14/20 21:00 Room Air 02/14/20 20:00 68 02/14/20 20:00 98.1 73 24 111/73 (86) 94 02/14/20 16:00 98.6 83 20 109/74 (86) 92 02/14/20 16:00 83 02/14/20 12:00 99.2 97 22 136/72 (93) 92 02/14/20 12:00 94 Intake and Output 02/14/20 02/15/20 18:59 06:59 Intake Total 291 ml 240 ml Output Total 500 ml Balance 291 ml -260 ml Intake Oral 236 ml 240 ml IV Total 55 ml Output Urine Total 500 ml Laboratory Tests Test 02/15/20 04:30 White Blood Count 4.8 K/UL (4.8-10.8) Red Blood Count 4.74 M/UL (4.70-6.10) Hemoglobin 15.2 G/DL (14.2-18.0) Hematocrit 42.8 % (42.0-52.0) Mean Corpuscular Volume 90 FL (80-99) Mean Corpuscular Hemoglobin 32.0 PG (27.0-31.0) H Mean Corpuscular Hemoglobin Concent 35.4 G/DL (32.0-36.0) Red Cell Distribution Width 12.1 % (11.6-14.8) Platelet Count 66 K/UL (150-450) L Mean Platelet Volume 11.2 FL (6.5-10.1) H Neutrophils (%) (Auto) % (45.0-75.0) Lymphocytes (%) (Auto) % (20.0-45.0) Monocytes (%) (Auto) % (1.0-10.0) Eosinophils (%) (Auto) % (0.0-3.0) Basophils (%) (Auto) % (0.0-2.0) Differential Total Cells Counted 100 Neutrophils % (Manual) 69 % (45-75) Lymphocytes % (Manual) 23 % (20-45) Monocytes % (Manual) 8 % (1-10) Eosinophils % (Manual) 0 % (0-3) Basophils % (Manual) 0 % (0-2) Band Neutrophils 0 % (0-8) Platelet Estimate Decreased L Platelet Morphology Normal Red Blood Cell Morphology Normal Sodium Level 134 MMOL/L (136-145) L Potassium Level 4.4 MMOL/L (3.5-5.1) Chloride Level 101 MMOL/L (98-107) Carbon Dioxide Level 23 MMOL/L (21-32) Anion Gap 10 mmol/L (5-15) Blood Urea Nitrogen 38 mg/dL (7-18) H Creatinine 1.0 MG/DL (0.55-1.30) Estimat Glomerular Filtration Rate > 60 mL/min (>60) Glucose Level 113 MG/DL (74-106) H Hemoglobin A1c 6.0 % (4.3-6.0) Osmolality 295 mOsm/kg (297-317) L Uric Acid 5.6 MG/DL (2.6-7.2) Calcium Level 7.7 MG/DL (8.5-10.1) L Phosphorus Level 3.3 MG/DL (2.5-4.9) Magnesium Level 1.8 MG/DL (1.8-2.4) Total Bilirubin 0.6 MG/DL (0.2-1.0) Gamma Glutamyl Transpeptidase 42 U/L (5-85) Aspartate Amino Transf (AST/SGOT) 44 U/L (15-37) H Alanine Aminotransferase (ALT/SGPT) 38 U/L (12-78) Alkaline Phosphatase 57 U/L (46-116) C-Reactive Protein, Quantitative 7.5 mg/dL (0.00-0.90) H Pro-B-Type Natriuretic Peptide 77 pg/mL (0-125) Total Protein 6.6 G/DL (6.4-8.2) Albumin 2.9 G/DL (3.4-5.0) L Globulin 3.7 g/dL Albumin/Globulin Ratio 0.8 (1.0-2.7) L Triglycerides Level 91 MG/DL (30-150) Cholesterol Level 147 MG/DL (< 200) LDL Cholesterol 90 mg/dL (<100) HDL Cholesterol 35 MG/DL (40-60) L Cholesterol/HDL Ratio 4.2 (3.3-4.4) Thyroid Stimulating Hormone (TSH) 1.120 uiU/mL (0.358-3.740) Objective HEAD AND NECK: No JVD. LUNGS: Coarse rhonchi. CARDIOVASCULAR: Regular S1 and S2 with no gallop or murmur. ABDOMEN: Soft. EXTREMITIES: No pitting edema. Mathew Piedra MD Feb 15, 2020 10:26
--- NOTE | 2020-02-15 11:27 | Infectious Diseases Prog Note ---
Assessment/Plan Assessment/Plan IMPRESSION: 1. COVID-19 disease. 2. Hypoxemia, mild 3. COPD. 4. Syncopal episode. 5. Leukopenia and thrombocytopenia with lymphopenia RECOMMENDATION: Discontinue ceftriaxone & Dexamethasone. Can be discharged to SNF Subjective ROS Limited/Unobtainable: Yes Constitutional: Denies: fever Allergies: Coded Allergies: No Known Allergies (Unverified , 09/28/19) Objective Last 24 Hour Vital Signs Date Time Temp Pulse Resp B/P (MAP) Pulse Ox O2 Delivery O2 Flow Rate FiO2 02/15/20 09:00 Room Air 02/15/20 08:00 97.7 81 20 104/60 (75) 94 02/15/20 07:56 79 02/15/20 04:00 67 02/15/20 04:00 98.4 72 22 108/74 (85) 94 02/15/20 00:00 97.5 78 24 119/75 (90) 97 02/15/20 00:00 64 02/14/20 21:00 Room Air 02/14/20 20:00 68 02/14/20 20:00 98.1 73 24 111/73 (86) 94 02/14/20 16:00 98.6 83 20 109/74 (86) 92 02/14/20 16:00 83 02/14/20 12:00 99.2 97 22 136/72 (93) 92 02/14/20 12:00 94 Height (Feet): 6 Height (Inches): 0.00 Weight (Pounds): 170 General Appearance: no acute distress HEENT: mucous membranes moist Respiratory/Chest: other - oxgen by nasal cannula Cardiovascular: normal rate Abdomen: soft, non tender Extremities: no edema Neurologic/Psychiatric: disoriented Laboratory Tests Test 02/15/20 04:30 White Blood Count 4.8 K/UL (4.8-10.8) Red Blood Count 4.74 M/UL (4.70-6.10) Hemoglobin 15.2 G/DL (14.2-18.0) Hematocrit 42.8 % (42.0-52.0) Mean Corpuscular Volume 90 FL (80-99) Mean Corpuscular Hemoglobin 32.0 PG (27.0-31.0) H Mean Corpuscular Hemoglobin Concent 35.4 G/DL (32.0-36.0) Red Cell Distribution Width 12.1 % (11.6-14.8) Platelet Count 66 K/UL (150-450) L Mean Platelet Volume 11.2 FL (6.5-10.1) H Neutrophils (%) (Auto) % (45.0-75.0) Lymphocytes (%) (Auto) % (20.0-45.0) Monocytes (%) (Auto) % (1.0-10.0) Eosinophils (%) (Auto) % (0.0-3.0) Basophils (%) (Auto) % (0.0-2.0) Differential Total Cells Counted 100 Neutrophils % (Manual) 69 % (45-75) Lymphocytes % (Manual) 23 % (20-45) Monocytes % (Manual) 8 % (1-10) Eosinophils % (Manual) 0 % (0-3) Basophils % (Manual) 0 % (0-2) Band Neutrophils 0 % (0-8) Platelet Estimate Decreased L Platelet Morphology Normal Red Blood Cell Morphology Normal Sodium Level 134 MMOL/L (136-145) L Potassium Level 4.4 MMOL/L (3.5-5.1) Chloride Level 101 MMOL/L (98-107) Carbon Dioxide Level 23 MMOL/L (21-32) Anion Gap 10 mmol/L (5-15) Blood Urea Nitrogen 38 mg/dL (7-18) H Creatinine 1.0 MG/DL (0.55-1.30) Estimat Glomerular Filtration Rate > 60 mL/min (>60) Glucose Level 113 MG/DL (74-106) H Hemoglobin A1c 6.0 % (4.3-6.0) Osmolality 295 mOsm/kg (297-317) L Uric Acid 5.6 MG/DL (2.6-7.2) Calcium Level 7.7 MG/DL (8.5-10.1) L Phosphorus Level 3.3 MG/DL (2.5-4.9) Magnesium Level 1.8 MG/DL (1.8-2.4) Total Bilirubin 0.6 MG/DL (0.2-1.0) Gamma Glutamyl Transpeptidase 42 U/L (5-85) Aspartate Amino Transf (AST/SGOT) 44 U/L (15-37) H Alanine Aminotransferase (ALT/SGPT) 38 U/L (12-78) Alkaline Phosphatase 57 U/L (46-116) C-Reactive Protein, Quantitative 7.5 mg/dL (0.00-0.90) H Pro-B-Type Natriuretic Peptide 77 pg/mL (0-125) Total Protein 6.6 G/DL (6.4-8.2) Albumin 2.9 G/DL (3.4-5.0) L Globulin 3.7 g/dL Albumin/Globulin Ratio 0.8 (1.0-2.7) L Triglycerides Level 91 MG/DL (30-150) Cholesterol Level 147 MG/DL (< 200) LDL Cholesterol 90 mg/dL (<100) HDL Cholesterol 35 MG/DL (40-60) L Cholesterol/HDL Ratio 4.2 (3.3-4.4) Thyroid Stimulating Hormone (TSH) 1.120 uiU/mL (0.358-3.740) Current Medications Medications (Trade) Dose Ordered Sig/Keenan Route PRN Reason Start Time Stop Time Status Last Admin Dose Admin Acetaminophen (Tylenol) 500 mg Q4H PRN ORAL Temp >100.5 02/11/20 01:45 03/12/20 01:44 02/14/20 06:31 Acetaminophen (Tylenol) 500 mg Q6H PRN ORAL Mild Pain (Pain Scale 1-3) 02/10/20 14:30 03/11/20 14:29 02/12/20 13:12 Ceftriaxone Sodium 1 gm/ Dextrose 55 ml @ 110 mls/hr Q24H IVPB 02/12/20 13:30 02/19/20 13:29 02/14/20 13:08 Dexamethasone Sodium Phosphate (Decadron 10mg/ ml Inj) 6 mg DAILY IV 02/12/20 13:45 02/21/20 09:01 02/14/20 08:36 Docusate Sodium (Colace) 100 mg DAILY ORAL 02/15/20 09:00 03/16/20 08:59 02/15/20 08:42 Haloperidol Lactate (Haldol) 5 mg Q6H PRN IM Agitation 02/12/20 16:45 03/28/20 16:44 Pantoprazole (Protonix) 40 mg DAILY ORAL 02/15/20 09:00 03/16/20 08:59 02/15/20 08:42 Amador Gallo MD Feb 15, 2020 11:27
[2020-02-15 12:00] VITALS: BP 105/62
--- NOTE | 2020-02-15 12:18 | NUR ---
NURSE NOTES: Patient is observed in bed, asleep but arousable by voice. Patient is refusing nursing care at this time. VSS. Will continue to monitor.
--- NOTE | 2020-02-15 13:09 | NUR ---
*-*DISCHARGE PLANNED*-* PATIENT HAS BEEN ACCEPTED AND WILL BE DISCHARGED BACK TO: [facility] P: [phone] FOR NURSE TO NURSE REPORT ROOM# 7.[facility] TRANSPORTATION SET FOR 2:45PM X888 S/W PATIENTS BROTHER MARCY TARIQ, WHO IS IN AGREEMENT WITH DISCHARGE PLAN.
--- NOTE | 2020-02-15 13:36 | NUR ---
NURSE NOTES: Attempted to contact [facility] [phone] for report, however, unable to reach the facility. Will attempt again at a later time.
--- NOTE | 2020-02-15 14:07 | NUR ---
NURSE NOTES: Report given to Silke WEAVER at [facility]. Endorsed plan of care. ETA pickle processor [id number].
--- NOTE | 2020-02-15 15:43 | Nephrology Progress Note ---
Assessment/Plan Problem List: (1) Dehydration (2) Proteinuria (3) COVID-19 (4) Psychotic disorder (5) Syncope Assessment Patient presented with serum creatinine of 1.4 however serum creatinine now w ithin normal limits Hyponatremia 4+ proteinuria Syncopal episode History of hypertension History of psychosis and dementia COVID-19 disease, COPD, hypoxia Leukopenia thrombocytopenia and lymphopenia Plan February 14: Labs reviewed. Serum sodium stable. Calcium somewhat low, vitamin D ordered. Continue per consultants. February 13: Urine for osmolality and spot sodium Serum uric acid serum osmolality TSH lipid panel Further comments after above results Med list reviewed Per consultants Per orders Subjective ROS Limited/Unobtainable: No Constitutional: Reports: malaise Objective Objective Last 24 Hour Vital Signs Date Time Temp Pulse Resp B/P (MAP) Pulse Ox O2 Delivery O2 Flow Rate FiO2 02/15/20 12:00 97.7 93 20 105/62 (76) 95 02/15/20 11:43 78 02/15/20 09:00 Room Air 02/15/20 08:00 97.7 81 20 104/60 (75) 94 02/15/20 07:56 79 02/15/20 04:00 67 02/15/20 04:00 98.4 72 22 108/74 (85) 94 02/15/20 00:00 97.5 78 24 119/75 (90) 97 02/15/20 00:00 64 02/14/20 21:00 Room Air 02/14/20 20:00 68 02/14/20 20:00 98.1 73 24 111/73 (86) 94 02/14/20 16:00 98.6 83 20 109/74 (86) 92 02/14/20 16:00 83 Intake and Output 02/14/20 02/15/20 19:00 07:00 Intake Total 291 ml 240 ml Output Total 500 ml Balance 291 ml -260 ml Intake Oral 236 ml 240 ml IV Total 55 ml Output Urine Total 500 ml Laboratory Tests 02/15/20 04:30: White Blood Count 4.8, Red Blood Count 4.74, Hemoglobin 15.2, Hematocrit 42.8, Mean Corpuscular Volume 90, Mean Corpuscular Hemoglobin 32.0H, Mean Corpuscular Hemoglobin Concent 35.4, Red Cell Distribution Width 12.1, Platelet Count 66L, Mean Platelet Volume 11.2H, Neutrophils (%) (Auto) , Lymphocytes (%) (Auto) , Monocytes (%) (Auto) , Eosinophils (%) (Auto) , Basophils (%) (Auto) , Differential Total Cells Counted 100, Neutrophils % (Manual) 69, Lymphocytes % (Manual) 23, Monocytes % (Manual) 8, Eosinophils % (Manual) 0, Basophils % (Manual) 0, Band Neutrophils 0, Platelet Estimate DecreasedL, Platelet Morphology Normal, Red Blood Cell Morphology Normal, Sodium Level 134L, Potassium Level 4.4, Chloride Level 101, Carbon Dioxide Level 23, Anion Gap 10, Blood Urea Nitrogen 38H, Creatinine 1.0, Estimat Glomerular Filtration Rate > 60, Glucose Level 113H, Hemoglobin A1c 6.0, Osmolality 295L, Uric Acid 5.6, Calcium Level 7.7L, Phosphorus Level 3.3, Magnesium Level 1.8, Total Bilirubin 0.6, Gamma Glutamyl Transpeptidase 42, Aspartate Amino Transf (AST/SGOT) 44H, Alanine Aminotransferase (ALT/SGPT) 38, Alkaline Phosphatase 57, C-Reactive Protein, Quantitative 7.5H, Pro-B-Type Natriuretic Peptide 77, Total Protein 6.6, Albumin 2.9L, Globulin 3.7, Albumin/Globulin Ratio 0.8L, Triglycerides Level 91, Cholesterol Level 147, LDL Cholesterol 90, HDL Cholesterol 35L, Cholesterol/HDL Ratio 4.2, Thyroid Stimulating Hormone (TSH) 1.120 Height (Feet): 6 Height (Inches): 0.00 Weight (Pounds): 170 General Appearance: no apparent distress Cardiovascular: tachycardia Respiratory/Chest: decreased breath sounds Abdomen: distended Praful Walker MD Feb 15, 2020 15:43
[2020-02-15] MEDS ORDERED: Vitamin D 1000 IU Tab ORAL SCH (15:45)
--- NOTE | 2020-02-15 15:46 | NUR ---
NURSE NOTES: Patient is picked up by ambulance. Belongings given to EMT. IV site is removed. No bleeding and/or hematoma noted. Vital signs are stable. Discharge packet is given to EMT. Vital signs are stable. monitoring coordinator removed and given back to the pathology laboratory technologist. Report given to Silke WEAVER at [facility].
--- NOTE | 2020-02-15 16:32 | Diagnostic Imaging Report ---
ABDOMINAL ULTRASOUND -LIMITED INDICATION: Abdominal pain. TECHNIQUE: Multiplanar ultrasound examination of the abdomen with greyscale and doppler imaging. COMPARISON: None FINDINGS: Liver: The liver is normal in size and echogenicity. Spleen: Normal in size. Gallbladder: There is cholelithiasis. No significant gallbladder wall thickening. Gallbladder is not significantly distended. IMPRESSION: Targeted right upper quadrant ultrasound demonstrates cholelithiasis without other sonographic evidence of acute cholecystitis.
--- NOTE | 2020-02-15 17:11 | General Progress Note ---
Subjective ROS Limited/Unobtainable: Yes Allergies: Coded Allergies: No Known Allergies (Unverified , 09/28/19) Objective Last 24 Hour Vital Signs Date Time Temp Pulse Resp B/P (MAP) Pulse Ox O2 Delivery O2 Flow Rate FiO2 02/15/20 12:00 97.7 93 20 105/62 (76) 95 02/15/20 11:43 78 02/15/20 09:00 Room Air 02/15/20 08:00 97.7 81 20 104/60 (75) 94 02/15/20 07:56 79 02/15/20 04:00 67 02/15/20 04:00 98.4 72 22 108/74 (85) 94 02/15/20 00:00 97.5 78 24 119/75 (90) 97 02/15/20 00:00 64 02/14/20 21:00 Room Air 02/14/20 20:00 68 02/14/20 20:00 98.1 73 24 111/73 (86) 94 Intake and Output 02/14/20 02/15/20 19:00 07:00 Intake Total 291 ml 240 ml Output Total 500 ml Balance 291 ml -260 ml Intake Oral 236 ml 240 ml IV Total 55 ml Output Urine Total 500 ml Laboratory Tests 02/15/20 04:30: White Blood Count 4.8, Red Blood Count 4.74, Hemoglobin 15.2, Hematocrit 42.8, Mean Corpuscular Volume 90, Mean Corpuscular Hemoglobin 32.0H, Mean Corpuscular Hemoglobin Concent 35.4, Red Cell Distribution Width 12.1, Platelet Count 66L, Mean Platelet Volume 11.2H, Neutrophils (%) (Auto) , Lymphocytes (%) (Auto) , Monocytes (%) (Auto) , Eosinophils (%) (Auto) , Basophils (%) (Auto) , Differential Total Cells Counted 100, Neutrophils % (Manual) 69, Lymphocytes % (Manual) 23, Monocytes % (Manual) 8, Eosinophils % (Manual) 0, Basophils % (Manual) 0, Band Neutrophils 0, Platelet Estimate DecreasedL, Platelet Morphology Normal, Red Blood Cell Morphology Normal, Sodium Level 134L, Potassium Level 4.4, Chloride Level 101, Carbon Dioxide Level 23, Anion Gap 10, Blood Urea Nitrogen 38H, Creatinine 1.0, Estimat Glomerular Filtration Rate > 60, Glucose Level 113H, Hemoglobin A1c 6.0, Osmolality 295L, Uric Acid 5.6, Calcium Level 7.7L, Phosphorus Level 3.3, Magnesium Level 1.8, Total Bilirubin 0.6, Gamma Glutamyl Transpeptidase 42, Aspartate Amino Transf (AST/SGOT) 44H, Alanine Aminotransferase (ALT/SGPT) 38, Alkaline Phosphatase 57, C-Reactive Protein, Quantitative 7.5H, Pro-B-Type Natriuretic Peptide 77, Total Protein 6.6, Albumin 2.9L, Globulin 3.7, Albumin/Globulin Ratio 0.8L, Triglycerides Level 91, Cholesterol Level 147, LDL Cholesterol 90, HDL Cholesterol 35L, Cholesterol/HDL Ratio 4.2, Thyroid Stimulating Hormone (TSH) 1.120 Height (Feet): 6 Height (Inches): 0.00 Weight (Pounds): 170 Assessment/Plan Problem List: (1) Encephalopathy ICD Codes: G93.40 - Encephalopathy, unspecified SNOMED: 64855297 (2) UTI (urinary tract infection) ICD Codes: N39.0 - Urinary tract infection, site not specified SNOMED: 58211837 Qualifiers: Qualified Codes: N39.0 - Urinary tract infection, site not specified (3) TRAY (acute kidney injury) ICD Codes: N17.9 - Acute kidney failure, unspecified SNOMED: 97124173, 5218601 (4) Syncope ICD Codes: R55 - Syncope and collapse SNOMED: 606549550 Qualifiers: Qualified Codes: R55 - Syncope and collapse (5) Psychotic disorder ICD Codes: F29 - Unspecified psychosis not due to a substance or known physiological condition SNOMED: 96654453 Status: progressing Assessment/Plan: dc back to snf see dc summary for details covid positive pna no arrythmia uti improving Joana Dubois MD Feb 15, 2020 17:11
--- NOTE | 2020-02-15 21:41 | Neurology Progress Note ---
Interim History Interim History ROS Limited/Unobtainable: Yes Interim History more alert today, similar to baseline Objective Physical Exam Last Vital Signs Date Time Temp Pulse Resp B/P (MAP) Pulse Ox O2 Delivery O2 Flow Rate FiO2 02/15/20 12:00 97.7 93 20 105/62 (76) 95 02/15/20 09:00 Room Air Laboratory Tests Test 02/15/20 04:30 White Blood Count 4.8 K/UL (4.8-10.8) Red Blood Count 4.74 M/UL (4.70-6.10) Hemoglobin 15.2 G/DL (14.2-18.0) Hematocrit 42.8 % (42.0-52.0) Mean Corpuscular Volume 90 FL (80-99) Mean Corpuscular Hemoglobin 32.0 PG (27.0-31.0) H Mean Corpuscular Hemoglobin Concent 35.4 G/DL (32.0-36.0) Red Cell Distribution Width 12.1 % (11.6-14.8) Platelet Count 66 K/UL (150-450) L Mean Platelet Volume 11.2 FL (6.5-10.1) H Neutrophils (%) (Auto) % (45.0-75.0) Lymphocytes (%) (Auto) % (20.0-45.0) Monocytes (%) (Auto) % (1.0-10.0) Eosinophils (%) (Auto) % (0.0-3.0) Basophils (%) (Auto) % (0.0-2.0) Differential Total Cells Counted 100 Neutrophils % (Manual) 69 % (45-75) Lymphocytes % (Manual) 23 % (20-45) Monocytes % (Manual) 8 % (1-10) Eosinophils % (Manual) 0 % (0-3) Basophils % (Manual) 0 % (0-2) Band Neutrophils 0 % (0-8) Platelet Estimate Decreased L Platelet Morphology Normal Red Blood Cell Morphology Normal Sodium Level 134 MMOL/L (136-145) L Potassium Level 4.4 MMOL/L (3.5-5.1) Chloride Level 101 MMOL/L (98-107) Carbon Dioxide Level 23 MMOL/L (21-32) Anion Gap 10 mmol/L (5-15) Blood Urea Nitrogen 38 mg/dL (7-18) H Creatinine 1.0 MG/DL (0.55-1.30) Estimat Glomerular Filtration Rate > 60 mL/min (>60) Glucose Level 113 MG/DL (74-106) H Hemoglobin A1c 6.0 % (4.3-6.0) Osmolality 295 mOsm/kg (297-317) L Uric Acid 5.6 MG/DL (2.6-7.2) Calcium Level 7.7 MG/DL (8.5-10.1) L Phosphorus Level 3.3 MG/DL (2.5-4.9) Magnesium Level 1.8 MG/DL (1.8-2.4) Total Bilirubin 0.6 MG/DL (0.2-1.0) Gamma Glutamyl Transpeptidase 42 U/L (5-85) Aspartate Amino Transf (AST/SGOT) 44 U/L (15-37) H Alanine Aminotransferase (ALT/SGPT) 38 U/L (12-78) Alkaline Phosphatase 57 U/L (46-116) C-Reactive Protein, Quantitative 7.5 mg/dL (0.00-0.90) H Pro-B-Type Natriuretic Peptide 77 pg/mL (0-125) Total Protein 6.6 G/DL (6.4-8.2) Albumin 2.9 G/DL (3.4-5.0) L Globulin 3.7 g/dL Albumin/Globulin Ratio 0.8 (1.0-2.7) L Triglycerides Level 91 MG/DL (30-150) Cholesterol Level 147 MG/DL (< 200) LDL Cholesterol 90 mg/dL (<100) HDL Cholesterol 35 MG/DL (40-60) L Cholesterol/HDL Ratio 4.2 (3.3-4.4) Thyroid Stimulating Hormone (TSH) 1.120 uiU/mL (0.358-3.740) Head: normocophalic Neck: no rigidity EENT: benign Neurologic Exam Mental Status: awake Objective oriented to person only withdraws all 4, antigravity UEs non focal Impression/Recommendations Problems: (1) Encephalopathy (2) UTI (urinary tract infection) (3) TRAY (acute kidney injury) (4) Syncope (5) Dehydration (6) Proteinuria (7) COVID-19 (8) Psychotic disorder Status: progressing Diagnostic Impression 9 year old male patient who presented to [facility] from [facility] for unresponsiveness. [facility] staff states that he was found unresponsive and unconscious. He has history of Dementia, Alzheimer, Psychosis, history of encephalopathy hypocalcemia, copd, tobacco use, anxiety, tray, presbyopia, [facility]. Upon medication review in the chart he is on Depakote 500mg po bid.No mention of seizure history but will call his brother for more information. Currently patient is seen in isolation room for rule out covid 19 disease he is alert and oriented x2 encephalopathy improved Jb Perla MD Feb 15, 2020 21:41
--- NOTE | 2020-02-16 16:00 | Discharge Summary ---
Discharge Summary Discharge Summary _ DATE OF ADMISSION: 02/10/2020 DATE OF DISCHARGE: 02/15/2020 DISCHARGED BY: Dr. Dubois REASON FOR ADMISSION: 79 years old male with past medical history of COPD, dementia, encephalopathy, presented after syncopal episode. Patient was brought by funeral home attendant from the [facility] facility. No reported fall or head injury. Patient nonverbal and unable to provide any history. Upon evaluation vital signs were stable. Laboratory work-up revealed no leukocytosis stable hemoglobin hematocrit platelet count 85. Urinalysis revealed no pyuria and moderate bacteria +3 protein. Chemistry showed BUN 21, creatinine 1.4. Glucose 126. Troponin negative. Rapid COVID-19 was positive chest x-ray revealed borderline cardiomegaly. Bilateral interstitial disease most likely on the basis of chronic senescent changes although mild congestion also possible. Patient meets with source of the syncope possible UTI TRAY encephalopathy CONSULTANTS: corporate lawyer Dr. Calvert neurologist Dr. Perla ID specialist Dr Amador Gallo breaker operator Dr. Walker medical lab scientist/oncologist Dr. Ott HOSPITAL COURSE: Patient admitted to telemetry floor isolation room. Patient started on steroids. Patient experienced mild hypoxemia. Supplemental oxygen provided and titrated to keep pulse oximetry above 92%. Patient was followed-up with chest x-ray. No need to start remdesivir for this patient . Echocardiogram demonstrated preserved ejection fraction of 55%. No evidence of wall motion abnormality No evidence of left ventricular hypertrophy. Troponin was negative . EKG revealed no acute ischemic changes . Patient was ruled out for acute myocardial infarction. Telemetry showed sinus rhythm , no evidence of significant arrhythmia.. Etiology of the syncopal episode was not clear , possibly due to dehydration. Patient was bradycardic and was kept of SA [place] and AV am[place]ica blockers. Heart rate remained mostly in 50s , but at times dropped to 40s. Blood pressure was closely monitored and was stable without any antihypertensive. CT of the head revealed no acute intracranial pathology. Chronic small vessel disease with a cerebral volume loss noted. Mental status was closely monitored. As patient clinically improved, mental status improved to the baseline. No mentioning of prior seizure disorder . Patient was on Depakote at the facility, but it was likely due to psychiatric issues, as patient follows up with psychiatrist at the facility. Urine culture revealed no evidence of growth. Initially started antibiotic, stopped . Renal parameters and electrolytes were closely monitored. Electrolytes corrected as needed , and nephrotoxic's were avoided . Creatinine down to normal 1.0. patient had mild hyponatremia Platelet countwas closely monitored; upon discharge 66. Hepatitis panel was negative ; rapid HIV test was nonreactive. Abdominal ultrasound revealed cholelithiasis without sonographic evidence of acute cholecystitis. Continue monitor platelet count at the facility. Further work-up as outpatient as recommended by medical lab scientist. DVT prophylaxis with SCD provided due to thrombocytopenia. Respiratory status improved . Prior to discharge pulse oximetry stable on room air. Steroids stopped. Patient clinically stabilized and was ready for transfer back to [facility] facility for continuation of care. FINAL DIAGNOSES: Syncopal episode Covid pneumonia Acute kidney injury-resolved Dehydration History of hypertension Psychosis Dementia Thrombocytopenia DISCHARGE MEDICATIONS: See Medication Reconciliation list. DISCHARGE INSTRUCTIONS: Patient was discharged to the [facility] facility. Follow up with medical doctor at the facility. I have been assigned to dictate discharge summary for this account. I was not involved in the patient's management. Ivelisse Calixto NP Feb 16, 2020 16:00
== END 2020-02-15 17:10 | DRG 177 ==
LOC: EDBD 08:20 → EMR 08:57 → 2E 10:02 → EDBEDREQ 11:36 → 2E 12:06
DX: U07.1 COVID-19 (principal); J12.89 Other viral pneumonia; N17.9 Acute kidney failure, unspecified; N39.0 Urinary tract infection, site not specified; G93.40 Encephalopathy, unspecified; E87.1 Hypo-osmolality and hyponatremia; R55 Syncope and collapse; D69.6 Thrombocytopenia, unspecified; J44.9 Chronic obstructive pulmonary disease, unspecified; G30.9 Alzheimer's disease, unspecified; F02.80 Dementia in other diseases classified elsewhere, unspecified severity, without behavioral disturbance, psychotic disturbance, mood disturbance, and anxiety; E86.0 Dehydration; I10 Essential (primary) hypertension; F29 Unspecified psychosis not due to a substance or known physiological condition; R09.02 Hypoxemia; D72.810 Lymphocytopenia
CPT/HCPCS: 36415; 70450; 71045; 76705; 80048; 80053; 80061; 81003; 82378; 82977; 83036; 83735; 83880; 83930; 84100; 84443; 84484; 84550; 85007; 85025; 86140; 86703; 86705; 86709; 86803; 87081; 87086; 87340; 93005; 93306; 96365; 99285; J7030